=== PATIENT | male | born 1940 | race Caucasian/White ===

== ENCOUNTER 2019-05-31 22:35 | Emergency (ER) | payer MEDICARE, OTHER ==
[2019-05-31] MEDS ORDERED: Doxycycline 100 MG Tab PO ONE (22:36)
[2019-05-31] MEDS ORDERED: Cephalexin 500 MG Cap PO ONE (22:36)
[2019-05-31 23:32] VITALS: BP 135/79; PULSE 65
--- NOTE | 2019-05-31 23:44 | EDM.PDOC ---
ED HPI GENERAL MEDICAL PROBLEM - General Chief Complaint: Skin Complaint Stated Complaint: INFECTION Time Seen by Provider: 05/31/19 23:39 Source of Information: Reports: Patient History Limitations: Reports: No Limitations - History of Present Illness INITIAL COMMENTS - FREE TEXT/NARRATIVE: Brian is a 78 yo male presents with redness and pain in the pectoral region, where he had a pacemaker placed 3 days ago. No drainage.Denies any systemic symptoms of chest pain, fever or chills. He has chronic kidney disease, HTN,CAD , hyperlipidemia, afib,and GERD it is well-controlled. 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: Acetaminophen chest left post op Pain Score (Numeric/FACES): 5 - Related Data Allergies Allergy/AdvReac Type Severity Reaction Status Date / Time No Known Allergies Allergy Verified 05/31/19 23:27 Home Meds: Home Meds Ascorbate Calcium [Vitamin C] 1,000 mg PO DAILY@209909/23/15 [History] Aspirin 81 mg PO DAILY@209909/23/15 [History] Citalopram Hydrobromide [Citalopram HBr] 10 mg PO DAILY@209909/23/15 [History] Cyanocobalamin (Vitamin B-12) [B-12] 1,000 mcg PO DAILY@1200 09/23/15 [History] Doxazosin [Cardura] 4 mg PO DAILY@1800 09/23/15 [History] Gluc 2KCl/Chondr/Astrid Hy/Hy Ac [Glucosamine & Chondroitin Cap] 1 tab PO BID 02/02 [History] Metoprolol Tartrate 12.5 mg PO DAILY 09/23/15 [History] Multivitamin [Multivitamins] 1 tab PO DAILY@1200 09/23/15 [History] [place]-3 Fatty Acids [Fish Oil] 1,000 mg PO DAILY 09/23/15 [History] Acetaminophen/HYDROcodone [[place] 325-5 MG] 1 tab PO Q4H PRN #30 tab 09/24/15 [Rx ] Finasteride 5 mg PO DAILY@1200 09/22/18 [History] Pravastatin Sodium 10 mg PO DAILY 09/22/18 [History] Past Medical History HEENT History: Reports: Impaired Vision Cardiovascular History: Reports: Angina, High Cholesterol, Hypertension, [place] Other Cardiovascular History: ATHERSCLEROSIS OF [place] CORONARY ARTERY Gastrointestinal History: Reports: GERD, GI Bleed Other Gastrointestinal History: DIVERTICULOSIS Genitourinary History: Reports: Prostate Disorder Musculoskeletal History: Reports: Arthritis, Back Pain, Chronic, Fracture Neurological History: Reports: CVA, Headaches, Chronic Psychiatric History: Reports: Depression Endocrine/Metabolic History: Reports: Other (See Below) Other Endocrine/Metabolic History: pre-diabetics - Past Surgical History HEENT Surgical History: Reports: Oral Surgery, Tonsillectomy Cardiovascular Surgical History: Reports: Other (See Below) Other Cardiovascular Surgeries/Procedures: Pacemaker placed tuesday05/29/2019 Male Surgical History: Reports: Circumcision Neurological Surgical History: Reports: None Musculoskeletal Surgical History: Reports: None Social & Family History - Family History Family Medical History: Unobtainable - Caffeine Use Caffeine Use: Reports: Coffee ED ROS GENERAL - Review of Systems Review Of Systems: ROS reveals no pertinent complaints other than HPI. ED EXAM, SKIN/RASH Exam: See Below Exam Limited By: Uncooperative General Appearance: WD/WN Head: Atraumatic Neck: Normal Inspection Respiratory/Chest: No Respiratory Distress, Lungs Clear, Other (Left pectoral region overlying the pacemaker is red,warm,slightly tender.Redness extends to neck and chest wall,but no drainage) Cardiovascular: Normal Peripheral Pulses, No Edema, No JVD Course - Vital Signs Last Recorded V/S: Last Vital Signs Temp 97.7 F 05/31/19 22:40 Pulse 65 05/31/19 22:40 Resp 18 05/31/19 22:40 BP 135/79 05/31/19 22:40 Pulse Ox 97 05/31/19 22:40 - Orders/Labs/Meds Orders: Active Orders 24 hr Category Date Time Status CXR [Chest 2V] [CR] Stat Exams 05/31/19 23:22 Taken CULTURE BLOOD [BC] Urgent Lab 05/31/19 23:12 Received CULTURE BLOOD [BC] Urgent Lab 05/31/19 23:18 Received Blood Culture x2 Reflex Set [OM.PC] Urgent Oth 05/31/19 23:01 Ordered Labs: Laboratory Tests 05/31/19 05/31/19 05/31/19 Range/Units 23:12 23:12 23:12 WBC 8.0 (4.5-12.0) X10-3/uL RBC 3.87 L (4.30-5.75) x10(6)uL Hgb 12.5 L (13.5-17.8) g/dL Hct 36.7 (30.0-51.3) % MCV 95.0 (80-96) fL MCH 32.3 (27.7-33.6) pg MCHC 34.0 (32.2-35.4) g/dL RDW 13.9 (11.5-15.5) % Plt Count 176 (125-369) X10(3)uL MPV 8.1 (7.4-10.4) fL Neut % (Auto) 67.1 (46-82) % Lymph % (Auto) 17.9 (13-37) % [place] % (Auto) 13.3 H (4-12) % Eos % (Auto) 2 (1.0-5.0) % Baso % (Auto) 0 (0-2) % Neut # (Auto) 5.4 (1.6-8.3) # Lymph # (Auto) 1.4 (0.6-5.0) # [place] # (Auto) 1.1 (0.0-1.3) # Eos # (Auto) 0.1 (0.0-0.8) # Baso # (Auto) 0.0 (0.0-0.2) # Sodium 137 (135-145) mmol/L Potassium 4.7 (3.5-5.3) mmol/L Chloride 101 D (100-110) mmol/L Carbon Dioxide 26 (21-32) mmol/L BUN 32 H D (7-18) mg/dL Creatinine 1.9 H (0.70-1.30) mg/dL Est Cr Clr Drug Dosing TNP Estimated GFR (MDRD) 35 L (>60) BUN/Creatinine Ratio 16.8 (9-20) Glucose 115 (80-116) mg/dL Lactic Acid (0.4-2.2) mmol/L Calcium 8.8 (8.6-10.2) mg/dL Total Bilirubin 0.4 (0.1-1.3) mg/dL AST 24 (5-25) IU/L ALT 30 (12-36) U/L Alkaline Phosphatase 92 (56-112) IU/L C-Reactive Protein 6.1 H* (0.5-0.9) mg/dL Total Protein 7.5 (6.0-8.0) g/dL Albumin 3.5 (3.2-4.6) g/dL Globulin 4.0 g/dL Albumin/Globulin Ratio 0.9 05/31/19 Range/Units 23:18 WBC (4.5-12.0) X10-3/uL RBC (4.30-5.75) x10(6)uL Hgb (13.5-17.8) g/dL Hct (30.0-51.3) % MCV (80-96) fL MCH (27.7-33.6) pg MCHC (32.2-35.4) g/dL RDW (11.5-15.5) % Plt Count (125-369) X10(3)uL MPV (7.4-10.4) fL Neut % (Auto) (46-82) % Lymph % (Auto) (13-37) % [place] % (Auto) (4-12) % Eos % (Auto) (1.0-5.0) % Baso % (Auto) (0-2) % Neut # (Auto) (1.6-8.3) # Lymph # (Auto) (0.6-5.0) # [place] # (Auto) (0.0-1.3) # Eos # (Auto) (0.0-0.8) # Baso # (Auto) (0.0-0.2) # Sodium (135-145) mmol/L Potassium (3.5-5.3) mmol/L Chloride (100-110) mmol/L Carbon Dioxide (21-32) mmol/L BUN (7-18) mg/dL Creatinine (0.70-1.30) mg/dL Est Cr Clr Drug Dosing Estimated GFR (MDRD) (>60) BUN/Creatinine Ratio (9-20) Glucose (80-116) mg/dL Lactic Acid 0.6 (0.4-2.2) mmol/L Calcium (8.6-10.2) mg/dL Total Bilirubin (0.1-1.3) mg/dL AST (5-25) IU/L ALT (12-36) U/L Alkaline Phosphatase (56-112) IU/L C-Reactive Protein (0.5-0.9) mg/dL Total Protein (6.0-8.0) g/dL Albumin (3.2-4.6) g/dL Globulin g/dL Albumin/Globulin Ratio Departure - Departure Time of Disposition: 23:50 Disposition: Home, Self-Care 01 Condition: Good Clinical Impression: Cellulitis - Discharge Information Referrals: Naresh Howard MD [Primary Care Provider] - Forms: ED Department Discharge - Problem List & Annotations (1) Pacemaker infection SNOMED Code(s): 096811380 Code(s): T82.7XXA - INFECT/INFLM REACT D/T OTH CARDI/VASC DEV/IMPLNT/GRFT, INIT Status: Acute Current Visit: Yes Qualifiers: Encounter type: initial encounter Qualified Code(s): T82.7XXA - Infection and inflammatory reaction due to other cardiac and vascular devices, implants and grafts, initial encounter - Problem List Review Problem List Initiated/Reviewed/Updated: Yes - My Orders Last 24 Hours: My Active Orders 05/31/19 23:01 Blood Culture x2 Reflex Set [OM.PC] Urgent 05/31/19 23:12 CULTURE BLOOD [BC] Urgent 05/31/19 23:18 CULTURE BLOOD [BC] Urgent 05/31/19 23:22 CXR [Chest 2V] [CR] Stat - Assessment/Plan Last 24 Hours: My Active Orders 05/31/19 23:01 Blood Culture x2 Reflex Set [OM.PC] Urgent 05/31/19 23:12 CULTURE BLOOD [BC] Urgent 05/31/19 23:18 CULTURE BLOOD [BC] Urgent 05/31/19 23:22 CXR [Chest 2V] [CR] Stat Plan: Doug has no WBC elevation and no systemic symptoms. CXR was negative. His crp is elevated. I suggest oral antibiotics and close followup.Cephalexin and Doxy was chosen.See PCP on Tuesday.Return with any worsening symptoms,or systemic symptoms of fever,fatigue chiils
--- NOTE | 2019-06-01 11:44 | CR ---
INDICATION: Pacemaker infection. CHEST: Two PA views and two lateral views of the chest were obtained 05/31/19 and compared with 04/19/19 and 10/29/09. There has been interval placement of a pacemaker from the left subclavian area with tips appearing to be in satisfactory position with this bipolar pacemaker. Somewhat flattened diaphragm leaves, mildly prominent AP diameter, and hyperaeration all suggest COPD. Bony structures appear to be intact. The aorta is tortuous with calcification in the arch. The heart did not appear to be grossly enlarged but was near the upper limits of normal in size. A definite active infiltrate or effusion was not identified. IMPRESSION: No acute process - findings as noted above. MTDD
== END 2019-06-01 | disposition home or self-care (01) ==
LOC: FB.ED 22:35
DX: L03.313 Cellulitis of chest wall (principal); E78.00 Pure hypercholesterolemia, unspecified; I10 Essential (primary) hypertension; I25.2 Old myocardial infarction; K21.9 Gastro-esophageal reflux disease without esophagitis; F32.9 Major depressive disorder, single episode, unspecified; Z95.0 Presence of cardiac pacemaker; Z79.82 Long term (current) use of aspirin; Z79.899 Other long term (current) drug therapy; Z86.73 Personal history of transient ischemic attack (TIA), and cerebral infarction without residual deficits
CPT/HCPCS: 36415; 71046; 80053; 83605; 85025; 86140; 87040; 99283; A9270

== ENCOUNTER 2020-02-20 06:42 | Day surgery (SDC) | payer MEDICARE, OTHER ==
[2020-02-20] MEDS ORDERED: Lidocaine 1% PF 2 ML SDV INJECT ONE (06:43)
[2020-02-20] MEDS ORDERED: Propofol 200 MG/20 ML SDV IV ONE (06:43)
[2020-02-20] MEDS ORDERED: Lactated Ringers 1,000 ML IV SCH (06:45)
[2020-02-20] MEDS ORDERED: Sodium Chloride 0.9% 10 ML Syringe FLUSH PRN (06:45)
--- NOTE | 2020-02-20 09:44 | PCM.OPNOTE ---
- General Post-Op/Procedure Note Date of Surgery/Procedure: 02/20/20 Operative Procedure(s): c scope with bx Findings: ascending colon polyp diverticulosis internal hemorrhoids. Pre Op Diagnosis: bleeding per rectum Post-Op Diagnosis: ascending colon polyp. diverticulosis. internal hemorrhoids. Anesthesia Technique: MAC Primary Surgeon: Roger Brooks Anesthesia Provider: Roly Russ Pathology: colon polyp Complications: None Condition: Good Free Text/Narrative:: see dictation
--- NOTE | 2020-02-20 10:06 | OR ---
DATE OF OPERATION: 02/20/2020 SURGEON: Roger Brooks MD PREOPERATIVE DIAGNOSIS: Rectal bleeding. POSTOPERATIVE DIAGNOSES: Ascending colon polyp, diverticulosis of the descending and sigmoid colon, and what appears to be grade 2 internal hemorrhoids. INDICATIONS FOR PROCEDURE: This is a 79-year-old white male, referred with the above-mentioned complaints. He was offered and accepted colonoscopy. DESCRIPTION OF OPERATION: After an excellent IV sedation was administered, digital rectal exam was performed. No marked abnormality was noted. Flexible colonoscope was inserted and advanced to cecum. Prep was excellent. The following findings were noted. Ascending colon remarkable for a small 5 mm polyp, biopsied with the hot loop snare and retrieved with the Delcid Net. Transverse colon, unremarkable. Descending colon, occasional diverticula. Sigmoid, occasional diverticula. Rectum, unremarkable. Anus, grade 2 hemorrhoids, which appears to be the cause of his bleeding. Results will be sent to the patient by letter. Recommend high-fiber diet at this point. /[id number] /MODL
[2020-02-20 12:37] VITALS: BP 155/75; PULSE 62
== END 2020-02-20 10:30 | disposition home or self-care (01) ==
LOC: FB.SDS 06:42
PROVIDERS: ATTEND Surgery
DX: D12.2 Benign neoplasm of ascending colon (principal); K64.1 Second degree hemorrhoids; K57.30 Diverticulosis of large intestine without perforation or abscess without bleeding; E78.2 Mixed hyperlipidemia; F41.9 Anxiety disorder, unspecified; I10 Essential (primary) hypertension; N40.0 Benign prostatic hyperplasia without lower urinary tract symptoms; E66.9 Obesity, unspecified; Z79.82 Long term (current) use of aspirin; Z79.899 Other long term (current) drug therapy; Z88.8 Allergy status to other drugs, medicaments and biological substances; Z68.30 Body mass index [BMI] 30.0-30.9, adult
CPT/HCPCS: 00811; 45385; 88305; J2001; J2704; J7120

== ENCOUNTER 2020-02-28 07:59 | Emergency (ER) | payer MEDICARE, OTHER ==
--- NOTE | 2020-02-28 08:43 | EDM.PDOC ---
ED HPI GENERAL MEDICAL PROBLEM - General Chief Complaint: Gastrointestinal Problem Stated Complaint: RECTUM BLEEDING Time Seen by Provider: 02/28/20 08:00 Source of Information: Reports: Patient History Limitations: Reports: No Limitations - History of Present Illness INITIAL COMMENTS - FREE TEXT/NARRATIVE: Patient presented to the Ed because of bright red and dark stool that is mixed with stool. He denies having any abdominal pain. There is no N/V/. He has a colonoscopy done 1 week ago with removal of a small polyp and biopsy. Rectal Pain Score (Numeric/FACES): 2 - Related Data Allergies Allergy/AdvReac Type Severity Reaction Status Date / Time Beta-Adrenergic Agents Allergy Other Verified 02/28/20 08:10 lisinopril Allergy Cough Verified 02/28/20 08:10 Home Meds: Home Meds Ascorbate Calcium [Vitamin C] 1,000 mg PO DAILY@209909/23/15 [History] Aspirin 81 mg PO DAILY@209909/23/15 [History] Citalopram Hydrobromide [Citalopram HBr] 10 mg PO DAILY@209909/23/15 [History] Cyanocobalamin (Vitamin B-12) [B-12] 1,000 mcg PO DAILY@1200 09/23/15 [History] Doxazosin [Cardura] 4 mg PO DAILY@1800 09/23/15 [History] Multivitamin [Multivitamins] 1 tab PO DAILY@1200 09/23/15 [History] [place]-3 Fatty Acids [Fish Oil] 1,000 mg PO DAILY 09/23/15 [History] Finasteride 5 mg PO DAILY@1200 09/22/18 [History] Pravastatin Sodium 10 mg PO DAILY 09/22/18 [History] Amiodarone [Cordarone] 200 mg PO DAILY 02/20/20 [History] Ferrous Sulfate 325 mg PO DAILY 02/20/20 [History] Gabapentin [Neurontin] 300 mg PO BID 02/20/20 [History] Magnesium Oxide [Magnesium] 500 mg PO DAILY 02/20/20 [History] Rivaroxaban [Xarelto] 20 mg PO DAILY 02/20/20 [History] Sertraline [Zoloft] 100 mg PO DAILY 02/20/20 [History] Past Medical History HEENT History: Reports: Impaired Vision Cardiovascular History: Reports: Angina, High Cholesterol, Hypertension, [place] Other Cardiovascular History: ATHERSCLEROSIS OF [place] CORONARY ARTERY Respiratory History: Reports: Sleep Apnea Gastrointestinal History: Reports: Diverticulosis, GERD, GI Bleed, Hemorrhoids Other Gastrointestinal History: DIVERTICULOSIS Genitourinary History: Reports: Prostate Disorder Musculoskeletal History: Reports: Arthritis, Back Pain, Chronic, Fracture Neurological History: Reports: CVA, Headaches, Chronic Psychiatric History: Reports: Anxiety, Depression Endocrine/Metabolic History: Reports: Other (See Below) Other Endocrine/Metabolic History: pre-diabetics. OBESITY Hematologic History: Reports: Anticoagulation Therapy Immunologic History: Reports: None Oncologic (Cancer) History: Reports: None Dermatologic History: Reports: None - Past Surgical History Head Surgeries/Procedures: Reports: None HEENT Surgical History: Reports: Oral Surgery, Tonsillectomy Cardiovascular Surgical History: Reports: Other (See Below) Other Cardiovascular Surgeries/Procedures: Pacemaker placed tuesday05/29/2019 GI Surgical History: Reports: Colonoscopy, EGD, Hernia, Abdominal, Hernia, Inguinal, Polypectomy Male Surgical History: Reports: Circumcision Neurological Surgical History: Reports: None Musculoskeletal Surgical History: Reports: None Social & Family History - Family History Family Medical History: Unobtainable - Tobacco Use Smoking Status *Q: Former Smoker Used Tobacco, but Quit: Yes Month/Year Tobacco Last Used: 6 years ago - Caffeine Use Caffeine Use: Reports: Coffee - Recreational Drug Use Recreational Drug Use: No ED ROS GENERAL - Review of Systems Review Of Systems: See Below Constitutional: Reports: No Symptoms HEENT: Reports: No Symptoms Respiratory: Reports: No Symptoms Cardiovascular: Reports: No Symptoms Endocrine: Reports: No Symptoms GI/Abdominal: Reports: No Symptoms, Black Stool, Hematochezia, Melena : Reports: No Symptoms Musculoskeletal: Reports: No Symptoms Skin: Reports: No Symptoms ED EXAM, GI/ABD - Physical Exam Exam: See Below Exam Limited By: No Limitations General Appearance: Alert, No Apparent Distress Ears: Normal External Exam, Normal Canal, Hearing Grossly Normal Nose: Normal Inspection, Normal Mucosa Throat/Mouth: Normal Inspection, Normal Lips, Normal Teeth Head: Atraumatic, Normocephalic Neck: Normal Inspection, Limited Range of Motion Cardiovascular: Normal Peripheral Pulses, Regular Rate, Rhythm, No Edema GI/Abdominal Exam: Normal Bowel Sounds, Soft, Non-Tender, No Organomegaly Course - Vital Signs Text/Narrative:: Cbc-see result Hb-11.8 occult blood -pos Case discussed with Dr. Brooks who agreed for patient to not take his xeralto and aspirin for 4 days and resume on Tuesday. Last Recorded V/S: Last Vital Signs Temp 36.4 C 02/28/20 08:00 Pulse 65 02/28/20 08:00 Resp 18 02/28/20 08:00 BP 123/70 02/28/20 08:00 Pulse Ox 97 02/28/20 08:00 - Orders/Labs/Meds Orders: Active Orders 24 hr Category Date Time Status OCCULT BLOOD SCREEN [OP] Stat Lab 02/28/20 08:35 Ordered Labs: Laboratory Tests 02/28/20 Range/Units 08:15 WBC 5.2 (4.5-12.0) X10-3/uL RBC 3.61 L (4.30-5.75) x10(6)uL Hgb 11.8 L (13.5-17.8) g/dL Hct 34.7 (30.0-51.3) % MCV 95.9 (80-96) fL MCH 32.8 (27.7-33.6) pg MCHC 34.2 (32.2-35.4) g/dL RDW 13.4 (11.5-15.5) % Plt Count 219 (125-369) X10(3)uL MPV 7.1 L (7.4-10.4) fL Neut % (Auto) 61.5 (46-82) % Lymph % (Auto) 23.1 (13-37) % [place] % (Auto) 11.6 (4-12) % Eos % (Auto) 3 (1.0-5.0) % Baso % (Auto) 1 (0-2) % Neut # (Auto) 3.2 (1.6-8.3) # Lymph # (Auto) 1.2 (0.6-5.0) # [place] # (Auto) 0.6 (0.0-1.3) # Eos # (Auto) 0.2 (0.0-0.8) # Baso # (Auto) 0.0 (0.0-0.2) # Departure - Departure Time of Disposition: 08:45 Disposition: Home, Self-Care 01 Condition: Good Clinical Impression: Lower GI bleed - Discharge Information Instructions: Lower Gastrointestinal Bleeding Referrals: Naresh Howard MD [Primary Care Provider] - Additional Instructions: Please read discharge instructions on Lower GI bleed Do not take your aspirin and xeralto for 4 days- to Tuesday and start taking it again on Tuesday The bleeding will not totally stop but gradually Sepsis Event Note - Evaluation Sepsis Screening Result: No Definite Risk - Focused Exam Vital Signs: Vital Signs Temp Pulse Resp BP Pulse Ox 02/28/20 08:00 36.4 C 65 18 123/70 97 Date Exam was Performed: 02/28/20 Time Exam was Performed: 08:37 - My Orders Last 24 Hours: My Active Orders 02/28/20 08:35 OCCULT BLOOD SCREEN [OP] Stat - Assessment/Plan Last 24 Hours: My Active Orders 02/28/20 08:35 OCCULT BLOOD SCREEN [OP] Stat
[2020-02-28 09:00] VITALS: BP 115/67; PULSE 61
== END 2020-02-28 09:00 | disposition home or self-care (01) ==
LOC: FB.ED 07:59
DX: K92.2 Gastrointestinal hemorrhage, unspecified (principal); E78.00 Pure hypercholesterolemia, unspecified; I10 Essential (primary) hypertension; I25.2 Old myocardial infarction; K21.9 Gastro-esophageal reflux disease without esophagitis; F41.9 Anxiety disorder, unspecified; F32.9 Major depressive disorder, single episode, unspecified; M19.90 Unspecified osteoarthritis, unspecified site; Z86.73 Personal history of transient ischemic attack (TIA), and cerebral infarction without residual deficits; Z88.8 Allergy status to other drugs, medicaments and biological substances; Z87.891 Personal history of nicotine dependence; Z79.899 Other long term (current) drug therapy
CPT/HCPCS: 36415; 82270; 85025; 99283

== ENCOUNTER 2020-02-28 20:20 | Emergency (ER) | payer MEDICARE, OTHER ==
--- NOTE | 2020-02-28 21:21 | EDM.PDOC ---
ED HPI GENERAL MEDICAL PROBLEM - General Chief Complaint: Abdominal Pain Stated Complaint: BLOOD IN STOOL Time Seen by Provider: 02/28/20 20:25 Source of Information: Reports: Patient History Limitations: Reports: No Limitations - History of Present Illness INITIAL COMMENTS - FREE TEXT/NARRATIVE: Patient presented to the ED because of dark looking stools. He was seen earlier this morning with HB of 11.8. He was told to hold on his xeralto and aspirin for [address] Brooks was consulted who agreed with the above plan of care. Bilateral Lower Abdomen Pain Score (Numeric/FACES): 4 - Related Data Allergies Allergy/AdvReac Type Severity Reaction Status Date / Time Beta-Adrenergic Agents Allergy Other Verified 02/28/20 20:30 lisinopril Allergy Cough Verified 02/28/20 20:30 Home Meds: Home Meds Ascorbate Calcium [Vitamin C] 1,000 mg PO DAILY@2100 09/23/15 [History] Aspirin 81 mg PO DAILY@2100 09/23/15 [History] Citalopram Hydrobromide [Citalopram HBr] 10 mg PO DAILY@2100 09/23/15 [History] Cyanocobalamin (Vitamin B-12) [B-12] 1,000 mcg PO DAILY@1200 09/23/15 [History] Doxazosin [Cardura] 4 mg PO DAILY@1800 09/23/15 [History] Multivitamin [Multivitamins] 1 tab PO DAILY@1200 09/23/15 [History] [place]-3 Fatty Acids [Fish Oil] 1,000 mg PO DAILY 09/23/15 [History] Finasteride 5 mg PO DAILY@1200 09/22/18 [History] Pravastatin Sodium 10 mg PO DAILY 09/22/18 [History] Amiodarone [Cordarone] 200 mg PO DAILY 02/20/20 [History] Ferrous Sulfate 325 mg PO DAILY 02/20/20 [History] Gabapentin [Neurontin] 300 mg PO BID 02/20/20 [History] Magnesium Oxide [Magnesium] 500 mg PO DAILY 02/20/20 [History] Rivaroxaban [Xarelto] 20 mg PO DAILY 02/20/20 [History] Sertraline [Zoloft] 100 mg PO DAILY 02/20/20 [History] Past Medical History HEENT History: Reports: Impaired Vision Cardiovascular History: Reports: Angina, High Cholesterol, Hypertension, [place] Other Cardiovascular History: ATHERSCLEROSIS OF [place] CORONARY ARTERY Respiratory History: Reports: Sleep Apnea Gastrointestinal History: Reports: Diverticulosis, GERD, GI Bleed, Hemorrhoids Other Gastrointestinal History: DIVERTICULOSIS Genitourinary History: Reports: Prostate Disorder Musculoskeletal History: Reports: Arthritis, Back Pain, Chronic, Fracture Neurological History: Reports: CVA, Headaches, Chronic Psychiatric History: Reports: Anxiety, Depression Endocrine/Metabolic History: Reports: Other (See Below) Other Endocrine/Metabolic History: pre-diabetics. OBESITY Hematologic History: Reports: Anticoagulation Therapy Immunologic History: Reports: None Oncologic (Cancer) History: Reports: None Dermatologic History: Reports: None - Past Surgical History Head Surgeries/Procedures: Reports: None HEENT Surgical History: Reports: Oral Surgery, Tonsillectomy Cardiovascular Surgical History: Reports: Other (See Below) Other Cardiovascular Surgeries/Procedures: Pacemaker placed tuesday05/29/2019 GI Surgical History: Reports: Colonoscopy, EGD, Hernia, Abdominal, Hernia, Inguinal, Polypectomy Male Surgical History: Reports: Circumcision Neurological Surgical History: Reports: None Musculoskeletal Surgical History: Reports: None Social & Family History - Family History Family Medical History: Unobtainable - Caffeine Use Caffeine Use: Reports: Coffee ED ROS GENERAL - Review of Systems Review Of Systems: See Below Constitutional: Reports: No Symptoms HEENT: Reports: No Symptoms Respiratory: Reports: No Symptoms Cardiovascular: Reports: No Symptoms Endocrine: Reports: No Symptoms GI/Abdominal: Reports: No Symptoms : Reports: No Symptoms Musculoskeletal: Reports: No Symptoms Skin: Reports: No Symptoms Neurological: Reports: No Symptoms Psychiatric: Reports: No Symptoms Hematologic/Lymphatic: Reports: No Symptoms ED EXAM, GI/ABD - Physical Exam Exam: See Below Exam Limited By: No Limitations General Appearance: Alert, No Apparent Distress Ears: Normal External Exam Nose: Normal Inspection Throat/Mouth: Normal Inspection Head: Atraumatic Neck: Normal Inspection Respiratory/Chest: No Respiratory Distress Cardiovascular: Normal Peripheral Pulses GI/Abdominal Exam: Normal Bowel Sounds Back Exam: Normal Inspection Course - Vital Signs Text/Narrative:: Hb=11 Last Recorded V/S: Last Vital Signs Temp 36.8 C 02/28/20 20:20 Pulse 61 02/28/20 20:20 Resp 16 02/28/20 20:20 BP 128/61 02/28/20 20:20 Pulse Ox 99 02/28/20 20:20 - Orders/Labs/Meds Labs: Laboratory Tests 02/28/20 Range/Units 20:40 Hgb 11.1 L (13.5-17.8) g/dL Departure - Departure Time of Disposition: 21:20 Disposition: Home, Self-Care 01 Condition: Good Clinical Impression: Bloody stools, Lower GI bleed - Discharge Information Instructions: Lower Gastrointestinal Bleeding Referrals: Naresh Howard MD [Primary Care Provider] - Forms: ED Department Discharge Additional Instructions: please read discharge instructions on bloody stools do not take your xeralto and aspirin until Tuesday, resume on Tuesday return to the ED if your bloody stools don't stop Sepsis Event Note - Focused Exam Date Exam was Performed: 02/29/20 Time Exam was Performed: 11:43
[2020-02-28 22:04] VITALS: BP 128/61; PULSE 61
== END 2020-02-28 21:42 | disposition home or self-care (01) ==
LOC: FB.ED 20:20
DX: K92.1 Melena (principal); E78.00 Pure hypercholesterolemia, unspecified; I10 Essential (primary) hypertension; I25.2 Old myocardial infarction; K21.9 Gastro-esophageal reflux disease without esophagitis; M19.90 Unspecified osteoarthritis, unspecified site; Z86.73 Personal history of transient ischemic attack (TIA), and cerebral infarction without residual deficits; E66.9 Obesity, unspecified; Z88.8 Allergy status to other drugs, medicaments and biological substances; Z79.899 Other long term (current) drug therapy; F41.9 Anxiety disorder, unspecified; F32.9 Major depressive disorder, single episode, unspecified
CPT/HCPCS: 36415; 85018; 99284

== ENCOUNTER 2023-04-08 03:24 | Emergency (ER) | payer MEDICARE, OTHER ==
[2023-04-08 04:00] LABS: BASOPHILS PERCENT AUTO 0.5 % (0.3-3.8); EOSINOPHILS ABSOLUTE AUTO 0.1 x10-3/uL (0.0-0.6); EOSINOPHILS PERCENT AUTO 2.4 % (0.1-6.8); HEMATOCRIT 40.3 % (38.3-50.1); HEMOGLOBIN 13.3 g/dL (12.9-17.7); LYMPHOCYTES ABSOLUTE AUTO 1.1 x10-3/uL (0.5-4.5); LYMPHOCYTES PERCENT AUTO 22.5 % (15.8-45.3); MEAN CORPUSCULAR HEMOGLOBIN 31.7 pg (27.0-33.3); MEAN CORPUSCULAR HGB CONC 33.1 g/dL (28.7-35.3); MEAN CORPUSCULAR VOLUME 95.8 fL (80.8-98.7); MEAN PLATELET VOLUME 8.4 fL (6.7-11.0); MONOCYTES ABSOLUTE AUTO 0.7 x10-3/uL (0.0-1.2); MONOCYTES PERCENT AUTO 14.6 % (5.5-15.2); NEUTROPHILS ABSOLUTE AUTO 2.9 x10-3/uL (1.7-6.9); PLATELET COUNT,PLT 158 x10(3)uL (117-477); RED BLOOD CELL COUNT 4.21 x10(6)uL (3.90-5.90); RED CELL DISTRIBUTION WIDTH 13.2 % (12.4-15.0); WHITE BLOOD CELL COUNT,WBC 4.8 x10-3/uL (3.2-10.1)
[2023-04-08 04:02] VITALS: BP 167/99; PULSE 69
[2023-04-08 04:08] LABS: INR 1.02 (1.00-1.24); PROTHROMBIN TIME 10.5 sec (9.0-11.1)
[2023-04-08 04:11] LABS: BLOOD UREA NITROGEN,BUN 20 mg/dL (7-18); BUN/CREATININE RATIO 15.4 (9-20); CALCIUM 8.9 mg/dL (8.6-10.2); CARBON DIOXIDE,CO2 28 mmol/L (21-32); CHLORIDE,CL 97 mmol/L (100-110); CREATININE 1.3 mg/dL (0.70-1.30); EST CRCL DRUG DOSING (CG) 51.81 mL/min; ESTIMATED GFR 55 mL/min (>60); GLUCOSE RANDOM 108 mg/dL (80-116); POTASSIUM,K 4.6 mmol/L (3.5-5.3); SODIUM,NA 131 mmol/L (135-145)
[2023-04-08 04:17] LABS: A/G RATIO 1.1; ALANINE AMINOTRANSFERASE,ALT 14 U/L (12-36); ALBUMIN 3.5 g/dL (3.2-4.6); ALKALINE PHOSPHATASE 76 IU/L (56-112); ASPARTATE AMNIOTRANSFERASE,AST 23 IU/L (5-25); BILIRUBIN TOTAL 0.4 mg/dL (0.1-1.3); PROTEIN TOTAL,TP 6.8 g/dL (6.0-8.0)
[2023-04-08 04:18] LABS: TROPONIN I 32.3 pg/mL (4.0-60.3)
[2023-04-08] MEDS ORDERED: Alum Hydroxide/Mag Hydroxide 15 ML, Lidocaine 2% 15 ML PO ONE ×2 (04:45)
[2023-04-08] MEDS ORDERED: Aluminum Hydroxide/Magnesium Hydroxide Susp 30 ML Cup ONE (04:51)
[2023-04-08] MEDS ORDERED: Aluminum Hydroxide/Magnesium Hydroxide Susp 30 ML Cup PO STA (05:16)
== END 2023-04-08 05:27 | disposition home or self-care (01) ==
LOC: FB.ED 03:24
DX: R07.9 Chest pain, unspecified (principal); E87.1 Hypo-osmolality and hyponatremia; I48.91 Unspecified atrial fibrillation; I10 Essential (primary) hypertension; I25.2 Old myocardial infarction; I25.10 Atherosclerotic heart disease of native coronary artery without angina pectoris; E78.00 Pure hypercholesterolemia, unspecified; K21.9 Gastro-esophageal reflux disease without esophagitis; M19.90 Unspecified osteoarthritis, unspecified site; Z87.891 Personal history of nicotine dependence; Z88.8 Allergy status to other drugs, medicaments and biological substances; Z79.82 Long term (current) use of aspirin; Z79.899 Other long term (current) drug therapy; Z79.01 Long term (current) use of anticoagulants; Z95.5 Presence of coronary angioplasty implant and graft; Z95.0 Presence of cardiac pacemaker
CPT/HCPCS: 36415; 80053; 83880; 84484; 85025; 85610; 99284; A9270

== ENCOUNTER 2023-05-26 10:13 | Inpatient (IN) | payer MEDICARE, OTHER ==
[2023-05-26] MEDS ORDERED: Albuterol 8 GM Inhaler INH PRN (14:17)
[2023-05-26] MEDS ORDERED: Nitroglycerin 0.4 MG Tab.SL SL PRN (14:56)
[2023-05-26] MEDS: Finasteride 5 MG Tab PO SCH (15:46)
[2023-05-26] MEDS: metroNIDAZOLE 500 MG Tab PO SCH ×2 (15:46→21:52)
[2023-05-26] MEDS: Polyethylene Glycol 3350 Powder 17 GM Packet PO SCH (16:52)
[2023-05-26] MEDS: Pregabalin 100 MG Cap PO SCH ×2 (16:52→21:52)
[2023-05-26] MEDS: Psyllium 0.52 GM Cap PO SCH (16:53)
[2023-05-26] MEDS ORDERED: Hydrocortisone 2.5% Crm 30 GM Tube TOP PRN (21:00)
[2023-05-26] MEDS: Docusate Sodium 100 MG Cap PO SCH (21:52)
[2023-05-26] MEDS: Magnesium Oxide 400 MG Tab PO SCH (21:52)
[2023-05-26] MEDS: Acetaminophen 325 MG Tab PO PRN (21:52)
[2023-05-26] MEDS: Apixaban 2.5 MG Tab PO SCH (21:52)
[2023-05-26] MEDS: Ascorbic Acid 500 MG Tab PO SCH (21:53)
[2023-05-27] MEDS: Pantoprazole 40 MG Tab.CR PO SCH (05:18)
[2023-05-27] MEDS: Psyllium 0.52 GM Cap PO SCH (08:37)
[2023-05-27] MEDS: Cholecalciferol (Vitamin D3) 25 MCG Tab PO SCH (08:38)
[2023-05-27] MEDS: Furosemide 20 MG Tab PO SCH (08:38)
[2023-05-27] MEDS: Doxazosin 2 MG Tab PO SCH (08:39)
[2023-05-27] MEDS: Pravastatin 20 MG Tab PO SCH (08:41)
[2023-05-27] MEDS: Docusate Sodium 100 MG Cap PO SCH ×2 (08:41→21:44)
[2023-05-27] MEDS: Apixaban 2.5 MG Tab PO SCH ×2 (08:43→21:41)
[2023-05-27] MEDS: metroNIDAZOLE 500 MG Tab PO SCH ×3 (08:43→21:41)
[2023-05-27] MEDS: Fish Oil/Omega-3 Fatty Acids 1 Gm Cap PO SCH (08:43)
[2023-05-27] MEDS: Aspirin 81 MG Tab.EC PO SCH (08:44)
[2023-05-27] MEDS: Lidocaine 4% 1 each Patch TOP SCH (08:44)
[2023-05-27] MEDS: Polyethylene Glycol 3350 Powder 17 GM Packet PO SCH (08:49)
[2023-05-27] MEDS: Pregabalin 100 MG Cap PO SCH ×3 (08:50→21:46)
[2023-05-27] MEDS: Finasteride 5 MG Tab PO SCH (11:40)
[2023-05-27] MEDS: Cyanocobalamin (Vitamin B12) 1,000 MCG Tab PO SCH (11:40)
[2023-05-27] MEDS: Ascorbic Acid 500 MG Tab PO SCH (21:41)
[2023-05-27] MEDS: Magnesium Oxide 400 MG Tab PO SCH (21:41)
[2023-05-27] MEDS: Acetaminophen 325 MG Tab PO PRN (22:04)
[2023-05-28] MEDS: Pantoprazole 40 MG Tab.CR PO SCH (06:11)
[2023-05-28] MEDS: Lidocaine 4% 1 each Patch TOP SCH (08:34)
[2023-05-28] MEDS: Polyethylene Glycol 3350 Powder 17 GM Packet PO SCH (08:34)
[2023-05-28] MEDS: Docusate Sodium 100 MG Cap PO SCH ×2 (08:37→21:28)
[2023-05-28] MEDS: Psyllium 0.52 GM Cap PO SCH (08:37)
[2023-05-28] MEDS: Cholecalciferol (Vitamin D3) 25 MCG Tab PO SCH (08:37)
[2023-05-28] MEDS: Pravastatin 20 MG Tab PO SCH (08:37)
[2023-05-28] MEDS: metroNIDAZOLE 500 MG Tab PO SCH ×3 (08:37→21:28)
[2023-05-28] MEDS: Fish Oil/Omega-3 Fatty Acids 1 Gm Cap PO SCH (08:37)
[2023-05-28] MEDS: Apixaban 2.5 MG Tab PO SCH ×2 (08:37→21:28)
[2023-05-28] MEDS: Furosemide 20 MG Tab PO SCH (08:37)
[2023-05-28] MEDS: Doxazosin 2 MG Tab PO SCH (08:37)
[2023-05-28] MEDS: Aspirin 81 MG Tab.EC PO SCH (08:37)
[2023-05-28] MEDS: Pregabalin 100 MG Cap PO SCH ×3 (08:51→21:28)
[2023-05-28] MEDS: Cyanocobalamin (Vitamin B12) 1,000 MCG Tab PO SCH (14:07)
[2023-05-28] MEDS: Finasteride 5 MG Tab PO SCH (14:08)
[2023-05-28] MEDS: Ascorbic Acid 500 MG Tab PO SCH (21:29)
[2023-05-28] MEDS: Magnesium Oxide 400 MG Tab PO SCH (21:29)
[2023-05-28] MEDS: Acetaminophen 325 MG Tab PO PRN (21:29)
[2023-05-29] MEDS: Acetaminophen 325 MG Tab PO PRN (03:23)
[2023-05-29] MEDS ORDERED: Cyclobenzaprine 10 MG Tab PO ONE (04:24)
[2023-05-29] MEDS ORDERED: traMADol 50 MG Tab PO ONE (04:25)
[2023-05-29] MEDS: Pantoprazole 40 MG Tab.CR PO SCH (05:59)
[2023-05-29 06:05] VITALS: PULSE 69
[2023-05-29] MEDS: traMADol 50 MG Tab PO SCH ×2 (10:18→16:55)
[2023-05-29] MEDS: Cholecalciferol (Vitamin D3) 25 MCG Tab PO SCH (10:20)
[2023-05-29] MEDS: metroNIDAZOLE 500 MG Tab PO SCH ×3 (10:20→21:36)
[2023-05-29] MEDS: Aspirin 81 MG Tab.EC PO SCH (10:20)
[2023-05-29] MEDS: Furosemide 20 MG Tab PO SCH (10:20)
[2023-05-29] MEDS: Pravastatin 20 MG Tab PO SCH (10:20)
[2023-05-29] MEDS: Fish Oil/Omega-3 Fatty Acids 1 Gm Cap PO SCH (10:21)
[2023-05-29] MEDS: Apixaban 2.5 MG Tab PO SCH ×2 (10:21→21:36)
[2023-05-29] MEDS: Psyllium 0.52 GM Cap PO SCH (10:21)
[2023-05-29] MEDS: Docusate Sodium 100 MG Cap PO SCH ×2 (10:21→21:36)
[2023-05-29] MEDS: Pregabalin 100 MG Cap PO SCH ×3 (10:22→21:36)
[2023-05-29] MEDS: Doxazosin 2 MG Tab PO SCH (10:22)
[2023-05-29] MEDS: Polyethylene Glycol 3350 Powder 17 GM Packet PO SCH (10:24)
[2023-05-29] MEDS: Lidocaine 4% 1 each Patch TOP SCH (10:48)
[2023-05-29] MEDS: Cyanocobalamin (Vitamin B12) 1,000 MCG Tab PO SCH (12:20)
[2023-05-29] MEDS: Finasteride 5 MG Tab PO SCH (12:20)
[2023-05-29] MEDS: Acetaminophen 500 MG Tab PO SCH ×2 (13:19→21:37)
[2023-05-29] MEDS ORDERED: Pregabalin 25 MG Cap ONE (13:55)
[2023-05-29] MEDS ORDERED: Pregabalin 25 MG Cap PO ONE (14:00)
[2023-05-29] MEDS ORDERED: traMADol 50 MG Tab PO PRN (16:46)
[2023-05-29] MEDS ORDERED: Cyclobenzaprine 10 MG Tab PO PRN (16:46)
[2023-05-29] MEDS: Magnesium Oxide 400 MG Tab PO SCH (21:36)
[2023-05-29] MEDS: Ascorbic Acid 500 MG Tab PO SCH (21:37)
[2023-05-30] MEDS: Pantoprazole 40 MG Tab.CR PO SCH (05:32)
[2023-05-30] MEDS: Fish Oil/Omega-3 Fatty Acids 1 Gm Cap PO SCH (08:17)
[2023-05-30] MEDS: Aspirin 81 MG Tab.EC PO SCH (08:18)
[2023-05-30] MEDS: Doxazosin 2 MG Tab PO SCH (08:18)
[2023-05-30] MEDS: Apixaban 2.5 MG Tab PO SCH ×2 (08:19→21:38)
[2023-05-30] MEDS: Furosemide 20 MG Tab PO SCH (08:19)
[2023-05-30] MEDS: Pravastatin 20 MG Tab PO SCH (08:21)
[2023-05-30] MEDS: Psyllium 0.52 GM Cap PO SCH (08:21)
[2023-05-30] MEDS: Cholecalciferol (Vitamin D3) 25 MCG Tab PO SCH (08:22)
[2023-05-30] MEDS: metroNIDAZOLE 500 MG Tab PO SCH ×3 (08:23→21:38)
[2023-05-30] MEDS: Docusate Sodium 100 MG Cap PO SCH ×2 (08:24→21:38)
[2023-05-30] MEDS: Polyethylene Glycol 3350 Powder 17 GM Packet PO SCH (08:30)
[2023-05-30] MEDS: Acetaminophen 500 MG Tab PO SCH ×3 (08:43→21:39)
[2023-05-30] MEDS: Albuterol 90 MCG/6.7 GM Inhaler INH SCH ×4 (08:44→21:38)
[2023-05-30] MEDS: Lidocaine 4% 1 each Patch TOP SCH (08:56)
[2023-05-30] MEDS: Pregabalin 100 MG Cap PO SCH ×3 (08:56→21:38)
[2023-05-30] MEDS: Finasteride 5 MG Tab PO SCH (11:33)
[2023-05-30] MEDS: Cyanocobalamin (Vitamin B12) 1,000 MCG Tab PO SCH (11:33)
[2023-05-30] MEDS: Magnesium Oxide 400 MG Tab PO SCH (21:38)
[2023-05-30] MEDS: Ascorbic Acid 500 MG Tab PO SCH (21:40)
[2023-05-30] MEDS: CBD PO PRN (21:41)
[2023-05-31] MEDS: Pantoprazole 40 MG Tab.CR PO SCH (06:00)
[2023-05-31] MEDS: Furosemide 20 MG Tab PO SCH (08:01)
[2023-05-31] MEDS: Aspirin 81 MG Tab.EC PO SCH (08:01)
[2023-05-31] MEDS: Pregabalin 100 MG Cap PO SCH ×3 (08:01→21:45)
[2023-05-31] MEDS: metroNIDAZOLE 500 MG Tab PO SCH ×3 (08:01→21:45)
[2023-05-31] MEDS: Acetaminophen 500 MG Tab PO SCH ×3 (08:01→21:46)
[2023-05-31] MEDS: Apixaban 2.5 MG Tab PO SCH ×2 (08:01→21:45)
[2023-05-31] MEDS: Docusate Sodium 100 MG Cap PO SCH ×2 (08:02→21:44)
[2023-05-31] MEDS: Doxazosin 2 MG Tab PO SCH (08:02)
[2023-05-31] MEDS: Lidocaine 4% 1 each Patch TOP SCH (08:03)
[2023-05-31] MEDS: Psyllium 0.52 GM Cap PO SCH (08:03)
[2023-05-31] MEDS: Polyethylene Glycol 3350 Powder 17 GM Packet PO SCH (08:04)
[2023-05-31] MEDS: Fish Oil/Omega-3 Fatty Acids 1 Gm Cap PO SCH (08:04)
[2023-05-31] MEDS: Pravastatin 20 MG Tab PO SCH (08:04)
[2023-05-31] MEDS: Albuterol 90 MCG/6.7 GM Inhaler INH SCH ×4 (08:05→21:45)
[2023-05-31] MEDS: Cholecalciferol (Vitamin D3) 25 MCG Tab PO SCH (08:06)
[2023-05-31] MEDS: Finasteride 5 MG Tab PO SCH (12:26)
[2023-05-31] MEDS: Cyanocobalamin (Vitamin B12) 1,000 MCG Tab PO SCH (12:26)
[2023-05-31] MEDS: Magnesium Oxide 400 MG Tab PO SCH (21:45)
[2023-05-31] MEDS: Ascorbic Acid 500 MG Tab PO SCH (21:47)
[2023-05-31] MEDS: CBD PO PRN (21:48)
[2023-06-01] MEDS: Pantoprazole 40 MG Tab.CR PO SCH (06:22)
[2023-06-01] MEDS: Albuterol 90 MCG/6.7 GM Inhaler INH SCH ×2 (08:27→12:57)
[2023-06-01] MEDS: Lidocaine 4% 1 each Patch TOP SCH (08:27)
[2023-06-01] MEDS: Cholecalciferol (Vitamin D3) 25 MCG Tab PO SCH (08:27)
[2023-06-01] MEDS: Apixaban 2.5 MG Tab PO SCH (08:29)
[2023-06-01] MEDS: Furosemide 20 MG Tab PO SCH (08:29)
[2023-06-01] MEDS: Acetaminophen 500 MG Tab PO SCH ×2 (08:29→12:57)
[2023-06-01] MEDS: Aspirin 81 MG Tab.EC PO SCH (08:29)
[2023-06-01] MEDS: Pravastatin 20 MG Tab PO SCH (08:29)
[2023-06-01] MEDS: Psyllium 0.52 GM Cap PO SCH (08:29)
[2023-06-01] MEDS: Doxazosin 2 MG Tab PO SCH (08:30)
[2023-06-01] MEDS: metroNIDAZOLE 500 MG Tab PO SCH ×2 (08:30→12:57)
[2023-06-01] MEDS: Fish Oil/Omega-3 Fatty Acids 1 Gm Cap PO SCH (08:30)
[2023-06-01] MEDS: Docusate Sodium 100 MG Cap PO SCH (08:30)
[2023-06-01] MEDS: Polyethylene Glycol 3350 Powder 17 GM Packet PO SCH (08:31)
[2023-06-01 08:33] VITALS: BP 143/67
[2023-06-01] MEDS: Pregabalin 100 MG Cap PO SCH ×2 (08:33→12:57)
[2023-06-01] MEDS: Finasteride 5 MG Tab PO SCH (11:50)
[2023-06-01] MEDS: Cyanocobalamin (Vitamin B12) 1,000 MCG Tab PO SCH (11:51)
== END 2023-06-01 13:00 | disposition home or self-care (01) | DRG 948 ==
LOC: FB.MS 12:35
PROVIDERS: ADMIT Student in an Organized Health Care Education/Training Program; ATTEND Family Medicine
DX: R53.81 Other malaise (principal); C34.32 Malignant neoplasm of lower lobe, left bronchus or lung; I48.11 Longstanding persistent atrial fibrillation; M25.572 Pain in left ankle and joints of left foot; Z51.5 Encounter for palliative care; K63.89 Other specified diseases of intestine; I25.2 Old myocardial infarction; F41.9 Anxiety disorder, unspecified; K21.9 Gastro-esophageal reflux disease without esophagitis; M48.062 Spinal stenosis, lumbar region with neurogenic claudication; G47.33 Obstructive sleep apnea (adult) (pediatric); I25.10 Atherosclerotic heart disease of native coronary artery without angina pectoris; N40.0 Benign prostatic hyperplasia without lower urinary tract symptoms; E78.5 Hyperlipidemia, unspecified; E78.00 Pure hypercholesterolemia, unspecified; K57.30 Diverticulosis of large intestine without perforation or abscess without bleeding; F32.A Depression, unspecified; G89.29 Other chronic pain; M54.9 Dorsalgia, unspecified; I12.9 Hypertensive chronic kidney disease with stage 1 through stage 4 chronic kidney disease, or unspecified chronic kidney disease; N18.30 Chronic kidney disease, stage 3 unspecified; Z79.899 Other long term (current) drug therapy; Z95.0 Presence of cardiac pacemaker; Z86.73 Personal history of transient ischemic attack (TIA), and cerebral infarction without residual deficits; Z79.82 Long term (current) use of aspirin; Z87.891 Personal history of nicotine dependence
CPT/HCPCS: 36415; 84550; 97161-GP; 97165-GO; 97530-GO; 97530-GP; 97535-GO; 99306; 99309; 99315; A9270-GY

== ENCOUNTER 2023-06-03 12:51 | Inpatient (IN) | payer MEDICARE, OTHER ==
[2023-06-03] MEDS ORDERED: Acetaminophen 500 MG Tab PO ONE (13:33)
[2023-06-03 13:38] LABS: BASOPHILS PERCENT AUTO 0.2 % (0.3-3.8); EOSINOPHILS PERCENT AUTO 0.1 % (0.1-6.8); HEMATOCRIT 30.2 % (38.3-50.1); HEMOGLOBIN 10.1 g/dL (12.9-17.7); LYMPHOCYTES ABSOLUTE AUTO 0.4 x10-3/uL (0.5-4.5); LYMPHOCYTES PERCENT AUTO 4.5 % (15.8-45.3); MEAN CORPUSCULAR HEMOGLOBIN 32.3 pg (27.0-33.3); MEAN CORPUSCULAR HGB CONC 33.4 g/dL (28.7-35.3); MEAN CORPUSCULAR VOLUME 96.5 fL (80.8-98.7); MEAN PLATELET VOLUME 7.6 fL (6.7-11.0); MONOCYTES ABSOLUTE AUTO 1.4 x10-3/uL (0.0-1.2); MONOCYTES PERCENT AUTO 16.7 % (5.5-15.2); NEUTROPHILS ABSOLUTE AUTO 6.4 x10-3/uL (1.7-6.9); NEUTROPHILS PERCENT AUTO 78.5 % (40.3-71.8); PLATELET COUNT,PLT 359 x10(3)uL (117-477); RED BLOOD CELL COUNT 3.13 x10(6)uL (3.90-5.90); RED CELL DISTRIBUTION WIDTH 13.6 % (12.4-15.0); WHITE BLOOD CELL COUNT,WBC 8.1 x10-3/uL (3.2-10.1)
[2023-06-03] MEDS: Sodium Chloride 0.9% 10 ML Syringe FLUSH PRN ×2 (13:42→21:19)
[2023-06-03 13:43] LABS: BLOOD UREA NITROGEN,BUN 22 mg/dL (7-18); BUN/CREATININE RATIO 14.7 (9-20); CALCIUM 8.4 mg/dL (8.6-10.2); CARBON DIOXIDE,CO2 31 mmol/L (21-32); CHLORIDE,CL 97 mmol/L (100-110); CREATININE 1.5 mg/dL (0.70-1.30); EST CRCL DRUG DOSING (CG) 42.39 mL/min; ESTIMATED GFR 46 mL/min (>60); GLUCOSE RANDOM 118 mg/dL (80-116); POTASSIUM,K 4.9 mmol/L (3.5-5.3); SODIUM,NA 132 mmol/L (135-145)
[2023-06-03 13:45] LABS: BASE EXCESS VENOUS,POC 1 mmol/L (-2 - 3+); PCO2 VENOUS,POC 43 mmHg (41-51); PH VENOUS,POC 7.39 pH Units (7.32-7.43)
[2023-06-03 13:49] LABS: A/G RATIO 0.6; ALANINE AMINOTRANSFERASE,ALT 18 U/L (12-36); ALBUMIN 2.5 g/dL (3.2-4.6); ALKALINE PHOSPHATASE 85 IU/L (56-112); ASPARTATE AMNIOTRANSFERASE,AST 18 IU/L (5-25); BILIRUBIN TOTAL 0.4 mg/dL (0.1-1.3); PROTEIN TOTAL,TP 6.6 g/dL (6.0-8.0)
[2023-06-03 13:52] LABS: TROPONIN I 23.8 pg/mL (4.0-60.3)
[2023-06-03 14:08] LABS: C-REACTIVE PROTEIN 12.05 mg/dL (<0.33)
[2023-06-03 14:48] LABS: INFLUENZA A NAA NEGATIVE (NEGATIVE); INFLUENZA B NAA NEGATIVE (NEGATIVE); RESPIRATORY SYNCYTIAL VIR NAA NEGATIVE (NEGATIVE)
[2023-06-03] MEDS ORDERED: Sodium Chloride 0.9% 1,000 ML IV ONE (14:48)
[2023-06-03 15:01] LABS: CORONAVIRUS COVID-19 NAA NEGATIVE (NEGATIVE)
[2023-06-03] MEDS ORDERED: Albuterol/Ipratropium 3.0-0.5 MG/3 ML Neb Soln NEB ONE (15:05)
[2023-06-03] MEDS ORDERED: methylPREDNISolone Sodium Succinate 125 MG/2 ML SDV IVPUSH ONE (15:35)
[2023-06-03 16:30] LABS: BILIRUBIN,URINE NEGATIVE (NEGATIVE); GLUCOSE,URINE NORMAL (NORMAL); KETONES,URINE NEGATIVE (NEGATIVE); LEUKOCYTE ESTERASE,URINE SMALL (NEGATIVE); NITRITE,URINE NEGATIVE (NEGATIVE); OCCULT BLOOD,URINE NEGATIVE (NEGATIVE); PROTEIN,URINE NEGATIVE (NEGATIVE); UROBILINOGEN,URINE NORMAL (NEGATIVE)
[2023-06-03 16:32] LABS: APPEARANCE,URINE CLEAR (CLEAR); BACTERIA,URINE FEW (NS); COLOR,URINE ORANGE (YELLOW); MUCUS,URINE FEW (NS); RBC,URINE 0-5 (0-5); SQUAMOUS EPITHELIAL CELLS,UR FEW (NS,R,O); WBC,URINE 0-5 (0-5)
[2023-06-03] MEDS ORDERED: Levofloxacin/Dextrose 5%-Water 750 MG in Premix Bag 1 BAG IV ONE (17:01)
[2023-06-03] MEDS ORDERED: Bisacodyl 5 MG Tab PO PRN (17:41)
[2023-06-03] MEDS ORDERED: Ondansetron 4 MG/2 ML SDV IV PRN (17:41)
[2023-06-03] MEDS ORDERED: Morphine 2 MG/ML SYRINGE IVPUSH PRN (17:41)
[2023-06-03] MEDS ORDERED: Magnesium Hydroxide 400 MG/5 ML Susp 30 ML Cup PO PRN (17:41)
[2023-06-03] MEDS ORDERED: Dextrose 5%-0.45% NaCl 1,000 ML IV SCH (17:45)
[2023-06-03] MEDS ORDERED: Nitroglycerin 0.4 MG Tab.SL SL PRN (17:49)
[2023-06-03] MEDS ORDERED: Acetaminophen 325 MG Tab PO PRN (17:49)
[2023-06-03] MEDS ORDERED: CBD PO PRN (17:49)
[2023-06-03] MEDS: Albuterol/Ipratropium 3.0-0.5 MG/3 ML Neb Soln NEB SCH (19:25)
[2023-06-03] MEDS ORDERED: Albuterol/Ipratropium 3.0-0.5 MG/3 ML Neb Soln INH SCH (21:00)
[2023-06-03] MEDS ORDERED: methylPREDNISolone Sod Succ 125 MG in Sodium Chloride 0.9% 100 ML IV SCH (21:00)
[2023-06-03] MEDS ORDERED: VITAMIN C 1000 MG PO SCH (21:00)
[2023-06-03] MEDS: Docusate Sodium 100 MG Cap PO SCH (21:05)
[2023-06-03] MEDS: METRONIDAZOLE 500 MG PO SCH (21:06)
[2023-06-03] MEDS: MAGNESIUM 250 MG PO SCH (21:07)
[2023-06-03] MEDS: APIXABAN 2.5 MG PO SCH (21:07)
[2023-06-03] MEDS: PREGABALIN 100 MG PO SCH (21:08)
[2023-06-03] MEDS: methylPREDNISolone Sodium Succinate 125 MG/2 ML SDV IVPUSH SCH (21:14)
[2023-06-03] MEDS: Acetaminophen 325 MG Tab PO PRN (22:21)
[2023-06-03] MEDS: Zolpidem 5 MG Tab PO PRN (22:21)
[2023-06-04] MEDS: Albuterol/Ipratropium 3.0-0.5 MG/3 ML Neb Soln NEB SCH ×5 (01:03→23:18)
[2023-06-04 06:49] LABS: HEMATOCRIT 28.7 % (38.3-50.1); HEMOGLOBIN 9.5 g/dL (12.9-17.7); MEAN CORPUSCULAR HEMOGLOBIN 32.2 pg (27.0-33.3); MEAN CORPUSCULAR HGB CONC 33.1 g/dL (28.7-35.3); MEAN CORPUSCULAR VOLUME 97.4 fL (80.8-98.7); MEAN PLATELET VOLUME 7.8 fL (6.7-11.0); PLATELET COUNT,PLT 297 x10(3)uL (117-477); RED BLOOD CELL COUNT 2.94 x10(6)uL (3.90-5.90); RED CELL DISTRIBUTION WIDTH 13.5 % (12.4-15.0)
[2023-06-04 06:55] LABS: BLOOD UREA NITROGEN,BUN 22 mg/dL (7-18); BUN/CREATININE RATIO 14.7 (9-20); CARBON DIOXIDE,CO2 28 mmol/L (21-32); CHLORIDE,CL 96 mmol/L (100-110); CREATININE 1.5 mg/dL (0.70-1.30); EST CRCL DRUG DOSING (CG) 45.53 mL/min; ESTIMATED GFR 46 mL/min (>60); GLUCOSE RANDOM 235 mg/dL (80-116); POTASSIUM,K 4.6 mmol/L (3.5-5.3); SODIUM,NA 130 mmol/L (135-145)
[2023-06-04 07:06] LABS: LYMPHOCYTES PERCENT MAN 6 % (13-37); MONOCYTES PERCENT MAN 6 % (4-12); SEG NEUTROPHILS PERCENT MAN 88 % (46-82)
[2023-06-04] MEDS: METRONIDAZOLE 500 MG PO SCH (08:19)
[2023-06-04] MEDS: APIXABAN 2.5 MG PO SCH (08:21)
[2023-06-04] MEDS: CANNABIDIOL PO PRN (08:21)
[2023-06-04] MEDS: PREGABALIN 100 MG PO SCH (08:22)
[2023-06-04] MEDS: Pravastatin 20 MG Tab PO SCH (08:23)
[2023-06-04] MEDS ORDERED: DOXAZOSIN 4 MG PO SCH (09:00)
[2023-06-04] MEDS ORDERED: Furosemide 20 MG Tab *PT OWN MED PO SCH (09:00)
[2023-06-04] MEDS: methylPREDNISolone Sodium Succinate 125 MG/2 ML SDV IVPUSH SCH (09:37)
[2023-06-04] MEDS: Sodium Chloride 0.9% 10 ML Syringe FLUSH PRN ×3 (09:41→21:15)
[2023-06-04] MEDS: Docusate Sodium 100 MG Cap PO SCH ×2 (09:42→21:05)
[2023-06-04] MEDS: Polyethylene Glycol 3350 Powder 17 GM Packet PO SCH (09:43)
[2023-06-04] MEDS: Cefepime 2 GM Vial IVPUSH SCH ×2 (10:20→21:09)
[2023-06-04] MEDS: Fish Oil/Omega-3 Fatty Acids 1 Gm Cap PO SCH (10:49)
[2023-06-04] MEDS: Cholecalciferol (Vitamin D3) 25 MCG Tab PO SCH (10:49)
[2023-06-04] MEDS: Aspirin 81 MG Tab.EC PO SCH (10:49)
[2023-06-04] MEDS: Finasteride 5 MG Tab PO SCH (11:34)
[2023-06-04] MEDS: Cyanocobalamin (Vitamin B12) 1,000 MCG Tab PO SCH (11:42)
[2023-06-04] MEDS: Pregabalin 100 MG Cap PO SCH ×2 (13:06→20:57)
[2023-06-04] MEDS: metroNIDAZOLE 500 MG Tab PO SCH ×2 (13:07→20:58)
[2023-06-04] MEDS ORDERED: Levofloxacin 750 MG Tab PO SCH (15:00)
[2023-06-04] MEDS: Ascorbic Acid 500 MG Tab PO SCH (20:57)
[2023-06-04] MEDS: Apixaban 2.5 MG Tab PO SCH (20:58)
[2023-06-04] MEDS: MAGNESIUM 250 MG PO SCH (20:58)
[2023-06-04] MEDS: Acetaminophen 325 MG Tab PO PRN (23:16)
[2023-06-04] MEDS: guaiFENesin 600 MG Tab.ER PO PRN (23:16)
[2023-06-04] MEDS: Zolpidem 5 MG Tab PO PRN (23:17)
[2023-06-05] MEDS: Albuterol/Ipratropium 3.0-0.5 MG/3 ML Neb Soln NEB SCH ×4 (06:07→23:12)
[2023-06-05 06:50] LABS: HEMATOCRIT 29.2 % (38.3-50.1); HEMOGLOBIN 9.8 g/dL (12.9-17.7); MEAN CORPUSCULAR HEMOGLOBIN 32.4 pg (27.0-33.3); MEAN CORPUSCULAR HGB CONC 33.7 g/dL (28.7-35.3); MEAN CORPUSCULAR VOLUME 96.2 fL (80.8-98.7); MEAN PLATELET VOLUME 7.7 fL (6.7-11.0); PLATELET COUNT,PLT 336 x10(3)uL (117-477); RED BLOOD CELL COUNT 3.04 x10(6)uL (3.90-5.90); RED CELL DISTRIBUTION WIDTH 13.6 % (12.4-15.0); WHITE BLOOD CELL COUNT,WBC 9.5 x10-3/uL (3.2-10.1)
[2023-06-05 06:53] LABS: BLOOD UREA NITROGEN,BUN 24 mg/dL (7-18); BUN/CREATININE RATIO 17.1 (9-20); CALCIUM 8.2 mg/dL (8.6-10.2); CARBON DIOXIDE,CO2 28 mmol/L (21-32); CHLORIDE,CL 94 mmol/L (100-110); CREATININE 1.4 mg/dL (0.70-1.30); EST CRCL DRUG DOSING (CG) 48.79 mL/min; ESTIMATED GFR 50 mL/min (>60); GLUCOSE RANDOM 165 mg/dL (80-116); POTASSIUM,K 4.9 mmol/L (3.5-5.3); SODIUM,NA 128 mmol/L (135-145)
[2023-06-05 07:02] LABS: BAND PERCENT MAN 1 % (0-6); LYMPHOCYTES PERCENT MAN 3 % (13-37); MONOCYTES PERCENT MAN 7 % (4-12); SEG NEUTROPHILS PERCENT MAN 89 % (46-82)
[2023-06-05] MEDS: predniSONE 20 MG Tab PO SCH (08:42)
[2023-06-05] MEDS: Docusate Sodium 100 MG Cap PO SCH ×2 (08:53→20:48)
[2023-06-05] MEDS: Pregabalin 100 MG Cap PO SCH ×3 (08:54→20:48)
[2023-06-05] MEDS: Aspirin 81 MG Tab.EC PO SCH (08:54)
[2023-06-05] MEDS: Apixaban 2.5 MG Tab PO SCH ×2 (08:54→20:48)
[2023-06-05] MEDS: metroNIDAZOLE 500 MG Tab PO SCH ×3 (08:55→20:48)
[2023-06-05] MEDS: Doxazosin 2 MG Tab PO SCH (08:55)
[2023-06-05] MEDS: Pravastatin 20 MG Tab PO SCH (08:57)
[2023-06-05] MEDS: Polyethylene Glycol 3350 Powder 17 GM Packet PO SCH (09:00)
[2023-06-05] MEDS: Cholecalciferol (Vitamin D3) 25 MCG Tab PO SCH (09:13)
[2023-06-05] MEDS: Furosemide 20 MG Tab PO SCH (10:02)
[2023-06-05] MEDS: Cefepime 2 GM Vial IVPUSH SCH ×2 (10:14→20:55)
[2023-06-05] MEDS: Sodium Chloride 0.9% 10 ML Syringe FLUSH PRN (10:15)
[2023-06-05] MEDS: Fish Oil/Omega-3 Fatty Acids 1 Gm Cap PO SCH (10:23)
[2023-06-05] MEDS: guaiFENesin 600 MG Tab.ER PO PRN ×2 (12:02→22:31)
[2023-06-05] MEDS: Finasteride 5 MG Tab PO SCH (12:14)
[2023-06-05] MEDS: Cyanocobalamin (Vitamin B12) 1,000 MCG Tab PO SCH (13:28)
[2023-06-05] MEDS ORDERED: Levofloxacin/Dextrose 5%-Water 750 MG in Premix Bag 1 BAG IV SCH (15:00)
[2023-06-05] MEDS: Levofloxacin 750 MG Tab PO SCH (16:54)
[2023-06-05 17:20] LABS: BLOOD UREA NITROGEN,BUN 28 mg/dL (7-18); CALCIUM 7.8 mg/dL (8.6-10.2); CARBON DIOXIDE,CO2 30 mmol/L (21-32); CHLORIDE,CL 93 mmol/L (100-110); CREATININE 1.4 mg/dL (0.70-1.30); EST CRCL DRUG DOSING (CG) 48.79 mL/min; ESTIMATED GFR 50 mL/min (>60); GLUCOSE RANDOM 192 mg/dL (80-116); SODIUM,NA 127 mmol/L (135-145)
[2023-06-05] MEDS ORDERED: Sodium Chloride 0.9% 1,000 ML IV SCH (18:30)
[2023-06-05] MEDS: Ascorbic Acid 500 MG Tab PO SCH (20:49)
[2023-06-05] MEDS: MAGNESIUM 250 MG PO SCH (20:49)
[2023-06-05] MEDS: Zolpidem 5 MG Tab PO PRN (22:31)
[2023-06-05] MEDS: Acetaminophen 325 MG Tab PO PRN (22:31)
[2023-06-05] MEDS: CANNABIDIOL PO PRN (22:35)
[2023-06-06] MEDS: Acetaminophen 325 MG Tab PO PRN ×4 (05:36→23:21)
[2023-06-06] MEDS: Albuterol/Ipratropium 3.0-0.5 MG/3 ML Neb Soln NEB SCH ×4 (05:36→23:15)
[2023-06-06] MEDS: Sodium Chloride 0.9% 1,000 ML IV SCH ×2 (06:33→20:46)
[2023-06-06 06:49] LABS: BASOPHILS PERCENT AUTO 0.1 % (0.3-3.8); HEMATOCRIT 29.4 % (38.3-50.1); HEMOGLOBIN 9.9 g/dL (12.9-17.7); LYMPHOCYTES ABSOLUTE AUTO 0.5 x10-3/uL (0.5-4.5); LYMPHOCYTES PERCENT AUTO 6.4 % (15.8-45.3); MEAN CORPUSCULAR HEMOGLOBIN 32.1 pg (27.0-33.3); MEAN CORPUSCULAR HGB CONC 33.6 g/dL (28.7-35.3); MEAN CORPUSCULAR VOLUME 95.6 fL (80.8-98.7); MEAN PLATELET VOLUME 7.5 fL (6.7-11.0); MONOCYTES ABSOLUTE AUTO 1.1 x10-3/uL (0.0-1.2); MONOCYTES PERCENT AUTO 14.4 % (5.5-15.2); NEUTROPHILS ABSOLUTE AUTO 5.8 x10-3/uL (1.7-6.9); NEUTROPHILS PERCENT AUTO 79.1 % (40.3-71.8); PLATELET COUNT,PLT 336 x10(3)uL (117-477); RED BLOOD CELL COUNT 3.08 x10(6)uL (3.90-5.90); RED CELL DISTRIBUTION WIDTH 13.7 % (12.4-15.0); WHITE BLOOD CELL COUNT,WBC 7.4 x10-3/uL (3.2-10.1)
[2023-06-06 06:54] LABS: BLOOD UREA NITROGEN,BUN 24 mg/dL (7-18); BUN/CREATININE RATIO 18.5 (9-20); CALCIUM 8.2 mg/dL (8.6-10.2); CARBON DIOXIDE,CO2 29 mmol/L (21-32); CHLORIDE,CL 96 mmol/L (100-110); CREATININE 1.3 mg/dL (0.70-1.30); EST CRCL DRUG DOSING (CG) 52.54 mL/min; ESTIMATED GFR 55 mL/min (>60); GLUCOSE RANDOM 125 mg/dL (80-116); POTASSIUM,K 4.7 mmol/L (3.5-5.3); SODIUM,NA 130 mmol/L (135-145)
[2023-06-06] MEDS: predniSONE 20 MG Tab PO SCH (08:05)
[2023-06-06] MEDS: Docusate Sodium 100 MG Cap PO SCH ×2 (08:49→20:51)
[2023-06-06] MEDS: metroNIDAZOLE 500 MG Tab PO SCH ×3 (08:49→20:54)
[2023-06-06] MEDS: Pregabalin 100 MG Cap PO SCH ×3 (08:50→21:08)
[2023-06-06] MEDS: Pravastatin 20 MG Tab PO SCH (08:51)
[2023-06-06] MEDS: Apixaban 2.5 MG Tab PO SCH ×2 (08:51→20:54)
[2023-06-06] MEDS: Doxazosin 2 MG Tab PO SCH (08:52)
[2023-06-06] MEDS: Furosemide 20 MG Tab PO SCH (08:55)
[2023-06-06] MEDS: Cholecalciferol (Vitamin D3) 25 MCG Tab PO SCH (08:55)
[2023-06-06] MEDS: Aspirin 81 MG Tab.EC PO SCH (08:55)
[2023-06-06] MEDS: Cefepime 2 GM Vial IVPUSH SCH ×2 (08:56→21:35)
[2023-06-06] MEDS: Fish Oil/Omega-3 Fatty Acids 1 Gm Cap PO SCH (08:58)
[2023-06-06] MEDS: Polyethylene Glycol 3350 Powder 17 GM Packet PO SCH (08:59)
[2023-06-06] MEDS: Finasteride 5 MG Tab PO SCH (11:57)
[2023-06-06] MEDS: Cyanocobalamin (Vitamin B12) 1,000 MCG Tab PO SCH (11:58)
[2023-06-06] MEDS: MAGNESIUM 250 MG PO SCH (20:56)
[2023-06-06] MEDS: Ascorbic Acid 500 MG Tab PO SCH (20:58)
[2023-06-06] MEDS: Zolpidem 5 MG Tab PO PRN (23:20)
[2023-06-06] MEDS: CANNABIDIOL PO PRN (23:20)
[2023-06-07] MEDS: Albuterol/Ipratropium 3.0-0.5 MG/3 ML Neb Soln NEB SCH ×4 (05:41→23:07)
[2023-06-07 06:40] LABS: MEAN CORPUSCULAR HEMOGLOBIN 32.1 pg (27.0-33.3); MEAN CORPUSCULAR HGB CONC 33.4 g/dL (28.7-35.3); MEAN CORPUSCULAR VOLUME 96.1 fL (80.8-98.7); MEAN PLATELET VOLUME 7.3 fL (6.7-11.0); PLATELET COUNT,PLT 324 x10(3)uL (117-477); RED BLOOD CELL COUNT 3.12 x10(6)uL (3.90-5.90); RED CELL DISTRIBUTION WIDTH 13.4 % (12.4-15.0); WHITE BLOOD CELL COUNT,WBC 5.7 x10-3/uL (3.2-10.1)
[2023-06-07 06:47] LABS: BLOOD UREA NITROGEN,BUN 22 mg/dL (7-18); BUN/CREATININE RATIO 16.9 (9-20); CALCIUM 8.2 mg/dL (8.6-10.2); CARBON DIOXIDE,CO2 31 mmol/L (21-32); CHLORIDE,CL 100 mmol/L (100-110); CREATININE 1.3 mg/dL (0.70-1.30); EST CRCL DRUG DOSING (CG) 52.54 mL/min; ESTIMATED GFR 55 mL/min (>60); GLUCOSE RANDOM 107 mg/dL (80-116); POTASSIUM,K 4.8 mmol/L (3.5-5.3); SODIUM,NA 134 mmol/L (135-145)
[2023-06-07 07:00] LABS: LYMPHOCYTES PERCENT MAN 11 % (13-37); MONOCYTES PERCENT MAN 11 % (4-12); SEG NEUTROPHILS PERCENT MAN 78 % (46-82)
[2023-06-07] MEDS: predniSONE 20 MG Tab PO SCH (08:29)
[2023-06-07] MEDS: Docusate Sodium 100 MG Cap PO SCH ×2 (08:30→20:30)
[2023-06-07] MEDS: Fish Oil/Omega-3 Fatty Acids 1 Gm Cap PO SCH (08:30)
[2023-06-07] MEDS: Apixaban 2.5 MG Tab PO SCH ×2 (08:30→20:30)
[2023-06-07] MEDS: Furosemide 20 MG Tab PO SCH (08:31)
[2023-06-07] MEDS: Aspirin 81 MG Tab.EC PO SCH (08:31)
[2023-06-07] MEDS: Polyethylene Glycol 3350 Powder 17 GM Packet PO SCH (08:32)
[2023-06-07] MEDS: Cholecalciferol (Vitamin D3) 25 MCG Tab PO SCH (08:32)
[2023-06-07] MEDS: metroNIDAZOLE 500 MG Tab PO SCH ×3 (08:32→20:30)
[2023-06-07] MEDS: Pregabalin 100 MG Cap PO SCH ×3 (08:35→20:30)
[2023-06-07] MEDS: Doxazosin 2 MG Tab PO SCH (08:35)
[2023-06-07] MEDS: Pravastatin 20 MG Tab PO SCH (08:38)
[2023-06-07] MEDS: Sodium Chloride 0.9% 10 ML Syringe FLUSH PRN ×2 (08:40→20:48)
[2023-06-07] MEDS: Cefepime 2 GM Vial IVPUSH SCH ×2 (08:42→20:43)
[2023-06-07] MEDS: Cyanocobalamin (Vitamin B12) 1,000 MCG Tab PO SCH (12:36)
[2023-06-07] MEDS: Finasteride 5 MG Tab PO SCH (12:36)
[2023-06-07] MEDS: Levofloxacin 750 MG Tab PO SCH (16:41)
[2023-06-07] MEDS: Ascorbic Acid 500 MG Tab PO SCH (20:30)
[2023-06-07] MEDS: MAGNESIUM 250 MG PO SCH (20:36)
[2023-06-07] MEDS: Zolpidem 5 MG Tab PO PRN (23:06)
[2023-06-07] MEDS: Acetaminophen 325 MG Tab PO PRN (23:06)
[2023-06-07] MEDS: CANNABIDIOL PO PRN (23:07)
[2023-06-08] MEDS: Albuterol/Ipratropium 3.0-0.5 MG/3 ML Neb Soln NEB SCH (05:59)
[2023-06-08 06:25] LABS: BASOPHILS PERCENT AUTO 0.1 % (0.3-3.8); EOSINOPHILS PERCENT AUTO 0.2 % (0.1-6.8); HEMATOCRIT 30.7 % (38.3-50.1); HEMOGLOBIN 10.5 g/dL (12.9-17.7); LYMPHOCYTES ABSOLUTE AUTO 0.6 x10-3/uL (0.5-4.5); LYMPHOCYTES PERCENT AUTO 11.1 % (15.8-45.3); MEAN CORPUSCULAR HEMOGLOBIN 33.1 pg (27.0-33.3); MEAN CORPUSCULAR HGB CONC 34.3 g/dL (28.7-35.3); MEAN CORPUSCULAR VOLUME 96.4 fL (80.8-98.7); MEAN PLATELET VOLUME 7.1 fL (6.7-11.0); MONOCYTES ABSOLUTE AUTO 0.9 x10-3/uL (0.0-1.2); MONOCYTES PERCENT AUTO 16.5 % (5.5-15.2); NEUTROPHILS PERCENT AUTO 72.1 % (40.3-71.8); PLATELET COUNT,PLT 342 x10(3)uL (117-477); RED BLOOD CELL COUNT 3.18 x10(6)uL (3.90-5.90); RED CELL DISTRIBUTION WIDTH 13.7 % (12.4-15.0); WHITE BLOOD CELL COUNT,WBC 5.5 x10-3/uL (3.2-10.1)
[2023-06-08 06:44] LABS: BLOOD UREA NITROGEN,BUN 18 mg/dL (7-18); BUN/CREATININE RATIO 13.8 (9-20); CALCIUM 8.5 mg/dL (8.6-10.2); CARBON DIOXIDE,CO2 31 mmol/L (21-32); CHLORIDE,CL 100 mmol/L (100-110); CREATININE 1.3 mg/dL (0.70-1.30); EST CRCL DRUG DOSING (CG) 52.54 mL/min; ESTIMATED GFR 55 mL/min (>60); GLUCOSE RANDOM 109 mg/dL (80-116); POTASSIUM,K 4.6 mmol/L (3.5-5.3); SODIUM,NA 136 mmol/L (135-145)
[2023-06-08] MEDS: predniSONE 20 MG Tab PO SCH (08:13)
[2023-06-08] MEDS: Pravastatin 20 MG Tab PO SCH (08:14)
[2023-06-08] MEDS: Docusate Sodium 100 MG Cap PO SCH (08:14)
[2023-06-08] MEDS: Aspirin 81 MG Tab.EC PO SCH (08:15)
[2023-06-08] MEDS: Cholecalciferol (Vitamin D3) 25 MCG Tab PO SCH (08:15)
[2023-06-08] MEDS: Doxazosin 2 MG Tab PO SCH (08:16)
[2023-06-08] MEDS: Fish Oil/Omega-3 Fatty Acids 1 Gm Cap PO SCH (08:16)
[2023-06-08] MEDS: Apixaban 2.5 MG Tab PO SCH (08:16)
[2023-06-08] MEDS: metroNIDAZOLE 500 MG Tab PO SCH (08:16)
[2023-06-08] MEDS: Polyethylene Glycol 3350 Powder 17 GM Packet PO SCH (08:18)
[2023-06-08] MEDS: Sodium Chloride 0.9% 10 ML Syringe FLUSH PRN (08:23)
[2023-06-08] MEDS: Cefepime 2 GM Vial IVPUSH SCH (08:23)
[2023-06-08] MEDS: Pregabalin 100 MG Cap PO SCH (08:23)
[2023-06-08] MEDS: Furosemide 20 MG Tab PO SCH (08:27)
[2023-06-08] MEDS: Acetaminophen 325 MG Tab PO PRN (10:33)
[2023-06-08 10:39] VITALS: BP 114/60; PULSE 71
== END 2023-06-08 11:05 | disposition home or self-care (01) | DRG 193 ==
LOC: FB.ED 12:51 → FB.MS 17:30 → UNDOADMOB 17:30 → FB.MS 20:11 → OBSVTOIN 06-04 10:24
PROVIDERS: ADMIT Family Medicine; ATTEND Family Medicine
DX: J18.9 Pneumonia, unspecified organism (principal); J96.01 Acute respiratory failure with hypoxia; C34.92 Malignant neoplasm of unspecified part of left bronchus or lung; I13.0 Hypertensive heart and chronic kidney disease with heart failure and stage 1 through stage 4 chronic kidney disease, or unspecified chronic kidney disease; N17.9 Acute kidney failure, unspecified; E87.1 Hypo-osmolality and hyponatremia; I48.11 Longstanding persistent atrial fibrillation; J44.1 Chronic obstructive pulmonary disease with (acute) exacerbation; G47.33 Obstructive sleep apnea (adult) (pediatric); Z95.0 Presence of cardiac pacemaker; I25.2 Old myocardial infarction; N40.0 Benign prostatic hyperplasia without lower urinary tract symptoms; K21.9 Gastro-esophageal reflux disease without esophagitis; F41.9 Anxiety disorder, unspecified; Z95.5 Presence of coronary angioplasty implant and graft; Z87.891 Personal history of nicotine dependence; M48.061 Spinal stenosis, lumbar region without neurogenic claudication; I45.10 Unspecified right bundle-branch block; Z88.8 Allergy status to other drugs, medicaments and biological substances; Z79.82 Long term (current) use of aspirin; Z79.899 Other long term (current) drug therapy; Z79.01 Long term (current) use of anticoagulants; E78.00 Pure hypercholesterolemia, unspecified; F32.A Depression, unspecified; E66.9 Obesity, unspecified; Z86.73 Personal history of transient ischemic attack (TIA), and cerebral infarction without residual deficits; Z90.89 Acquired absence of other organs; Z98.890 Other specified postprocedural states; I50.9 Heart failure, unspecified; E88.09 Other disorders of plasma-protein metabolism, not elsewhere classified; I25.10 Atherosclerotic heart disease of native coronary artery without angina pectoris; N18.30 Chronic kidney disease, stage 3 unspecified; D63.1 Anemia in chronic kidney disease; K63.89 Other specified diseases of intestine; I49.5 Sick sinus syndrome; I16.0 Hypertensive urgency; R53.81 Other malaise; Z68.30 Body mass index [BMI] 30.0-30.9, adult
CPT/HCPCS: 0241U; 36415; 71046; 74176; 80048; 80053; 81001; 83605; 84484; 85025; 86140; 87040; 93005; 94150; 94640; 96361; 96365; 96366; 96375; 96376; 97165-GO; 99285-25; A9270-GY; C1758; G0378; J0692; J1956; J2930; J3490; J7030; J7042; J7512; J7620

== ENCOUNTER 2023-06-16 17:44 | Emergency (ER) | payer MEDICARE, OTHER ==
[2023-06-16] MEDS ORDERED: Acetaminophen 500 MG Tab PO ONE (17:57)
[2023-06-16 18:30] LABS: BASOPHILS PERCENT AUTO 0.2 % (0.3-3.8); EOSINOPHILS PERCENT AUTO 0.1 % (0.1-6.8); HEMATOCRIT 30.6 % (38.3-50.1); HEMOGLOBIN 10.3 g/dL (12.9-17.7); LYMPHOCYTES ABSOLUTE AUTO 0.6 x10-3/uL (0.5-4.5); LYMPHOCYTES PERCENT AUTO 5.2 % (15.8-45.3); MEAN CORPUSCULAR HEMOGLOBIN 31.7 pg (27.0-33.3); MEAN CORPUSCULAR HGB CONC 33.7 g/dL (28.7-35.3); MEAN CORPUSCULAR VOLUME 94.2 fL (80.8-98.7); MEAN PLATELET VOLUME 7.6 fL (6.7-11.0); MONOCYTES ABSOLUTE AUTO 1.4 x10-3/uL (0.0-1.2); MONOCYTES PERCENT AUTO 12.4 % (5.5-15.2); NEUTROPHILS ABSOLUTE AUTO 9.6 x10-3/uL (1.7-6.9); NEUTROPHILS PERCENT AUTO 82.1 % (40.3-71.8); PLATELET COUNT,PLT 248 x10(3)uL (117-477); RED BLOOD CELL COUNT 3.25 x10(6)uL (3.90-5.90); RED CELL DISTRIBUTION WIDTH 14.2 % (12.4-15.0); WHITE BLOOD CELL COUNT,WBC 11.6 x10-3/uL (3.2-10.1)
[2023-06-16 18:40] LABS: LACTIC ACID 0.9 mmol/L (0.4-2.0)
[2023-06-16 19:41] LABS: BLOOD UREA NITROGEN,BUN 23 mg/dL (7-18); BUN/CREATININE RATIO 16.4 (9-20); CALCIUM 8.3 mg/dL (8.6-10.2); CARBON DIOXIDE,CO2 29 mmol/L (21-32); CHLORIDE,CL 98 mmol/L (100-110); CREATININE 1.4 mg/dL (0.70-1.30); ESTIMATED GFR 50 mL/min (>60); GLUCOSE RANDOM 138 mg/dL (80-116); POTASSIUM,K 4.6 mmol/L (3.5-5.3); SODIUM,NA 133 mmol/L (135-145)
[2023-06-16 19:47] LABS: A/G RATIO 0.6; ALANINE AMINOTRANSFERASE,ALT 17 U/L (12-36); ALBUMIN 2.4 g/dL (3.2-4.6); ALKALINE PHOSPHATASE 71 IU/L (56-112); ASPARTATE AMNIOTRANSFERASE,AST 19 IU/L (5-25); BILIRUBIN TOTAL 0.3 mg/dL (0.1-1.3); PROTEIN TOTAL,TP 6.7 g/dL (6.0-8.0)
[2023-06-16] MEDS ORDERED: Sodium Chloride 0.9% 1,000 ML IV SCH (20:00)
[2023-06-16 21:12] VITALS: BP 116/67; PULSE 69
== END 2023-06-16 21:07 | disposition home or self-care (01) ==
LOC: FB.ED 17:44
DX: J18.9 Pneumonia, unspecified organism (principal); I95.9 Hypotension, unspecified; E87.1 Hypo-osmolality and hyponatremia; I48.91 Unspecified atrial fibrillation; E78.00 Pure hypercholesterolemia, unspecified; I10 Essential (primary) hypertension; I25.2 Old myocardial infarction; Z20.822 Contact with and (suspected) exposure to COVID-19; Z87.891 Personal history of nicotine dependence; Z88.8 Allergy status to other drugs, medicaments and biological substances; Z79.899 Other long term (current) drug therapy; Z79.01 Long term (current) use of anticoagulants; Z79.82 Long term (current) use of aspirin; Z95.0 Presence of cardiac pacemaker; Z95.5 Presence of coronary angioplasty implant and graft
CPT/HCPCS: 36415; 71045; 80053; 83605; 85025; 96360; 99284-25; A9270-GY; J7030; U0002

== ENCOUNTER 2023-12-28 21:27 | Emergency (ER) | payer MEDICARE, OTHER ==
[2023-12-28] MEDS ORDERED: Acetaminophen/HYDROcodone 325-5 MG Tab PO ONE (21:28)
[2023-12-28 21:52] VITALS: PULSE 70
[2023-12-28 22:59] VITALS: BP 112/83
== END 2023-12-28 22:43 | disposition home or self-care (01) ==
LOC: FB.ED 21:27
DX: M79.18 Myalgia, other site (principal); I10 Essential (primary) hypertension; I25.2 Old myocardial infarction; I48.91 Unspecified atrial fibrillation; K21.9 Gastro-esophageal reflux disease without esophagitis; E78.00 Pure hypercholesterolemia, unspecified; E66.9 Obesity, unspecified; Z86.73 Personal history of transient ischemic attack (TIA), and cerebral infarction without residual deficits; Z95.5 Presence of coronary angioplasty implant and graft; Z95.0 Presence of cardiac pacemaker; Z79.899 Other long term (current) drug therapy; Z79.01 Long term (current) use of anticoagulants; Z79.82 Long term (current) use of aspirin; Z88.8 Allergy status to other drugs, medicaments and biological substances; Z68.28 Body mass index [BMI] 28.0-28.9, adult
CPT/HCPCS: 71046; 93005; 93010; 99283; A9270-GY

== ENCOUNTER 2024-03-02 11:46 | Emergency (ER) | payer MEDICARE, OTHER ==
[2024-03-02] MEDS ORDERED: Sodium Chloride 0.9% 10 ML Syringe FLUSH PRN (11:49)
[2024-03-02 12:15] LABS: BASOPHILS PERCENT AUTO 0.3 % (0.3-3.8); EOSINOPHILS ABSOLUTE AUTO 0.1 x10-3/uL (0.0-0.6); HEMATOCRIT 38.9 % (38.3-50.1); LYMPHOCYTES ABSOLUTE AUTO 0.8 x10-3/uL (0.5-4.5); LYMPHOCYTES PERCENT AUTO 14.7 % (15.8-45.3); MEAN CORPUSCULAR HEMOGLOBIN 32.2 pg (27.0-33.3); MEAN CORPUSCULAR HGB CONC 33.3 g/dL (28.7-35.3); MEAN CORPUSCULAR VOLUME 96.6 fL (80.8-98.7); MEAN PLATELET VOLUME 7.9 fL (6.7-11.0); MONOCYTES ABSOLUTE AUTO 0.9 x10-3/uL (0.0-1.2); MONOCYTES PERCENT AUTO 16.9 % (5.5-15.2); NEUTROPHILS ABSOLUTE AUTO 3.5 x10-3/uL (1.7-6.9); NEUTROPHILS PERCENT AUTO 67.1 % (40.3-71.8); PLATELET COUNT,PLT 205 x10(3)uL (117-477); RED BLOOD CELL COUNT 4.03 x10(6)uL (3.90-5.90); RED CELL DISTRIBUTION WIDTH 13.1 % (12.4-15.0); WHITE BLOOD CELL COUNT,WBC 5.2 x10-3/uL (3.2-10.1)
[2024-03-02 12:19] LABS: BLOOD UREA NITROGEN,BUN 18 mg/dL (7-18); BUN/CREATININE RATIO 13.8 (9-20); CALCIUM 9.2 mg/dL (8.6-10.2); CARBON DIOXIDE,CO2 30 mmol/L (21-32); CHLORIDE,CL 93 mmol/L (100-110); CREATININE 1.3 mg/dL (0.70-1.30); EST CRCL DRUG DOSING (CG) 50.94 mL/min; ESTIMATED GFR 55 mL/min (>60); GLUCOSE RANDOM 109 mg/dL (80-116); POTASSIUM,K 4.9 mmol/L (3.5-5.3); SODIUM,NA 129 mmol/L (135-145)
[2024-03-02 12:25] LABS: A/G RATIO 0.8; ALANINE AMINOTRANSFERASE,ALT 19 U/L (12-36); ALBUMIN 3.4 g/dL (3.2-4.6); ALKALINE PHOSPHATASE 89 IU/L (56-112); AMYLASE 51 U/L (25-115); ASPARTATE AMNIOTRANSFERASE,AST 26 IU/L (5-25); BILIRUBIN TOTAL 0.7 mg/dL (0.1-1.3); PROTEIN TOTAL,TP 7.6 g/dL (6.0-8.0)
[2024-03-02] MEDS: Morphine 2 MG/ML SYRINGE IVPUSH ONE (13:21)
[2024-03-02] MEDS: Ondansetron 4 MG/2 ML SDV IVPUSH ONE (13:22)
[2024-03-02] MEDS: Iopamidol 755 Mg/ML 100 ML Bottle IV SCH (13:44)
[2024-03-02 14:23] LABS: BILIRUBIN,URINE NEGATIVE (NEGATIVE); GLUCOSE,URINE NORMAL (NORMAL); KETONES,URINE NEGATIVE (NEGATIVE); LEUKOCYTE ESTERASE,URINE NEGATIVE (NEGATIVE); NITRITE,URINE NEGATIVE (NEGATIVE); OCCULT BLOOD,URINE NEGATIVE (NEGATIVE); PROTEIN,URINE NEGATIVE (NEGATIVE); UROBILINOGEN,URINE NORMAL (NEGATIVE)
[2024-03-02 14:27] LABS: APPEARANCE,URINE CLEAR (CLEAR); COLOR,URINE YELLOW (YELLOW); RBC,URINE NOT SEEN (0-5); SQUAMOUS EPITHELIAL CELLS,UR RARE (NS,R,O); WBC,URINE 0-5 (0-5)
[2024-03-02 14:28] LABS: BACTERIA,URINE OCCASIONAL (NS)
[2024-03-02 14:59] VITALS: BP 133/88; PULSE 69
== END 2024-03-02 15:23 ==
LOC: FB.ED 11:46
DX: K56.609 Unspecified intestinal obstruction, unspecified as to partial versus complete obstruction (principal); I48.91 Unspecified atrial fibrillation; E78.00 Pure hypercholesterolemia, unspecified; I10 Essential (primary) hypertension; I25.2 Old myocardial infarction; K21.9 Gastro-esophageal reflux disease without esophagitis; Z88.8 Allergy status to other drugs, medicaments and biological substances; Z79.899 Other long term (current) drug therapy; Z86.19 Personal history of other infectious and parasitic diseases; Z79.82 Long term (current) use of aspirin; Z79.01 Long term (current) use of anticoagulants; Z87.891 Personal history of nicotine dependence; Z68.28 Body mass index [BMI] 28.0-28.9, adult
CPT/HCPCS: 36415; 51798; 74177; 80053; 81001; 82150; 83690; 85025; 99285-25; Q9967

== ENCOUNTER 2024-07-31 17:55 | Emergency (ER) | payer MEDICARE, OTHER ==
[2024-07-31 18:28] VITALS: BP 141/81; PULSE 77
[2024-07-31 18:42] LABS: HEMATOCRIT 24.5 % (38.3-50.1); HEMOGLOBIN 8.1 g/dL (12.9-17.7); MEAN CORPUSCULAR HEMOGLOBIN 32.3 pg (27.0-33.3); MEAN CORPUSCULAR VOLUME 97.9 fL (80.8-98.7); MEAN PLATELET VOLUME 7.7 fL (6.7-11.0); PLATELET COUNT,PLT 93 x10(3)uL (117-477); RED CELL DISTRIBUTION WIDTH 15.9 % (12.4-15.0)
[2024-07-31 18:43] LABS: BLOOD UREA NITROGEN,BUN 14 mg/dL (7-18); CALCIUM 8.4 mg/dL (8.6-10.2); CARBON DIOXIDE,CO2 28 mmol/L (21-32); CHLORIDE,CL 96 mmol/L (100-110); CREATININE 1.4 mg/dL (0.70-1.30); ESTIMATED GFR 50 mL/min (>60); GLUCOSE RANDOM 147 mg/dL (80-116); POTASSIUM,K 4.7 mmol/L (3.5-5.3); SODIUM,NA 130 mmol/L (135-145)
[2024-07-31 18:49] LABS: A/G RATIO 0.8; ALANINE AMINOTRANSFERASE,ALT 38 U/L (12-36); ALBUMIN 2.9 g/dL (3.2-4.6); ALKALINE PHOSPHATASE 180 IU/L (56-112); ASPARTATE AMNIOTRANSFERASE,AST 35 IU/L (5-25); BILIRUBIN TOTAL 0.5 mg/dL (0.1-1.3); PROTEIN TOTAL,TP 6.4 g/dL (6.0-8.0)
[2024-07-31 18:52] LABS: WHITE BLOOD CELL COUNT,WBC 55.3 x10-3/uL (3.2-10.1)
[2024-07-31 19:08] LABS: BAND PERCENT MAN 3 % (0-6); BLASTS PERCENT MAN 5 % (0-0); LYMPHOCYTES PERCENT MAN 3 % (13-37); METAMYELOCYTE PERCENT MAN 1 % (0-0); MONOCYTES PERCENT MAN 4 % (4-12); MYELOCYTE PERCENT MAN 1 % (0-0); NRBC MANUAL 2 /100WBC (0-0); SEG NEUTROPHILS PERCENT MAN 83 % (46-82)
[2024-07-31] MEDS: Iopamidol 755 Mg/ML 100 ML Bottle IV ONE (19:12)
== END 2024-07-31 20:09 | disposition home or self-care (01) ==
LOC: FB.ED 17:55
DX: R07.89 Other chest pain (principal); D64.9 Anemia, unspecified; C78.02 Secondary malignant neoplasm of left lung; I10 Essential (primary) hypertension; E78.00 Pure hypercholesterolemia, unspecified; Z88.8 Allergy status to other drugs, medicaments and biological substances; Z79.82 Long term (current) use of aspirin; Z79.899 Other long term (current) drug therapy
CPT/HCPCS: 36415; 71275; 80053; 83605; 85025; 85379; 86140; 99285; Q9967; 93005

== ENCOUNTER 2024-11-10 11:33 | Inpatient (IN) | payer OTHER, MEDICARE ==
[2024-11-10] MEDS ORDERED: ALBUTEROL INH PRN ×2 (11:36→12:21)
[2024-11-10] MEDS ORDERED: Bisacodyl 10 MG Supp *PTOM RECTAL PRN (11:37)
[2024-11-10] MEDS ORDERED: PROCHLORPERAZINE 10 MG PO PRN (11:39)
[2024-11-10] MEDS ORDERED: Haloperidol Lactate 2 MG/ML Oral Soln 15 ML Bottle *PTOM PO PRN ×2 (11:42→12:22)
[2024-11-10] MEDS ORDERED: Hyoscyamine 0.125 MG Tab.SL *PTOM SL PRN (11:43)
[2024-11-10] MEDS ORDERED: Loperamide 2 MG Cap *PTOM PO PRN (11:44)
[2024-11-10] MEDS ORDERED: LORazepam 0.5 MG Tab PO PRN (11:55)
[2024-11-10] MEDS ORDERED: Ondansetron 4 MG Tab.DIS PRN (12:29)
[2024-11-10] MEDS: Dexamethasone 4 MG Tab *PTOM PO SCH (12:53)
[2024-11-10] MEDS: LORazepam 0.5 MG Tab PO SCH (13:02)
[2024-11-10] MEDS: Morphine 10 MG/0.5 ML Oral Syringe PO PRN (13:04)
[2024-11-10] MEDS: Acetaminophen 650 MG Tab.ER *PTOM PO SCH (13:08)
[2024-11-10] MEDS: Methadone 10 MG Tab PO SCH (20:56)
[2024-11-10] MEDS: Pregabalin 100 MG Cap PO SCH (20:57)
[2024-11-10] MEDS: Albuterol/Ipratropium 3.0-0.5 MG/3 ML Neb Soln *PTOM INH SCH (20:57)
[2024-11-10] MEDS: Mirtazapine 15 MG Tab *PTOM PO SCH (20:58)
[2024-11-10] MEDS: TYLENOL PM PO SCH (20:58)
[2024-11-10] MEDS: Sennosides/Docusate Sodium 50-8.6 MG Tab *PTOM PO SCH (20:59)
[2024-11-10] MEDS: BIOFREEZE TOP PRN (21:01)
[2024-11-11] MEDS: Famotidine 20 MG Tab *PTOM PO SCH (08:28)
[2024-11-11] MEDS: POLYETHYLENE GLYCOL PO SCH (08:33)
[2024-11-12] MEDS: LORazepam 1 MG Tab PO SCH (12:13)
[2024-11-12] MEDS: Morphine 15 MG Tab PO PRN (14:36)
[2024-11-12] MEDS: Methadone 10 MG Tab PO SCH (17:44)
[2024-11-12] MEDS: Mirtazapine 15 MG Tab *PTOM PO PRN (20:01)
[2024-11-12] MEDS: Pregabalin 100 MG Cap PO SCH (20:29)
[2024-11-12] MEDS ORDERED: Morphine 10 MG/0.5 ML Oral Syringe PO ONE (22:19)
[2024-11-12] MEDS ORDERED: Morphine 30 MG Tab.ER PO ONE (22:30)
[2024-11-12] MEDS: Morphine 10 MG/0.5 ML Oral Syringe PO ONE (22:41)
[2024-11-12] MEDS: Finasteride 5 MG Tab PO SCH (22:41)
[2024-11-12] MEDS: Morphine 15 MG Tab PO ONE (22:41)
[2024-11-13 04:49] VITALS: BP 141/83; PULSE 70
[2024-11-13] MEDS ORDERED: Albuterol 6.7 GM Inhaler INH PRN (10:05)
[2024-11-13] MEDS: Morphine 10 MG/0.5 ML Oral Syringe SL PRN (11:40)
[2024-11-13] MEDS ORDERED: LORazepam 2 MG/ML SDV IVPUSH PRN (12:06)
[2024-11-13] MEDS: Sodium Chloride 0.9% 10 ML Syringe FLUSH PRN (12:15)
[2024-11-13] MEDS: Morphine 10 MG/ML SDV IVPUSH PRN (12:18)
[2024-11-13] MEDS ORDERED: LORazepam 2 MG/ML SDV IVPUSH SCH (14:00)
== END 2024-11-13 10:05 | disposition critical access hospital (66) | DRG 951 ==
LOC: FB.MS 11:33
PROVIDERS: ADMIT Internal Medicine; ATTEND Internal Medicine
DX: Z51.5 Encounter for palliative care (principal); C34.90 Malignant neoplasm of unspecified part of unspecified bronchus or lung; Z75.5 Holiday relief care; F41.9 Anxiety disorder, unspecified; Z88.8 Allergy status to other drugs, medicaments and biological substances
CPT/HCPCS: 51702; 94640; A9270-GY; J2272; J7620; J8540; Q5005

== ENCOUNTER 2024-11-13 10:05 | Inpatient (IN) | payer OTHER, MEDICARE ==
[2024-11-13] MEDS ORDERED: Bisacodyl 10 MG Supp RECTAL PRN (13:42)
[2024-11-13] MEDS ORDERED: Loperamide 2 MG Cap PO PRN (13:43)
[2024-11-13] MEDS ORDERED: PROCHLORPERAZINE 10 MG PO PRN (13:43)
[2024-11-13] MEDS ORDERED: Mirtazapine 15 MG Tab PO PRN (13:46)
[2024-11-13] MEDS ORDERED: BIOFREEZE TOP PRN (13:48)
[2024-11-13] MEDS ORDERED: Ondansetron 4 MG Tab.DIS PRN (13:48)
[2024-11-13] MEDS ORDERED: Haloperidol Lactate 2 MG/ML Oral Soln 15 ML Bottle PO PRN ×2 (13:48→14:05)
[2024-11-13] MEDS ORDERED: Albuterol 6.7 GM Inhaler INH PRN (13:51)
[2024-11-13] MEDS ORDERED: Prochlorperazine 5 MG Tab PO PRN (13:57)
[2024-11-13] MEDS: LORazepam 2 MG/ML SDV IVPUSH SCH (14:14)
[2024-11-13] MEDS: Morphine 10 MG/ML SDV IVPUSH PRN (14:17)
[2024-11-13] MEDS: Methadone 10 MG Tab PO SCH (17:11)
[2024-11-13] MEDS: LORazepam 2 MG/ML SDV IVPUSH PRN ×2 (17:22→20:56)
[2024-11-13] MEDS: Acetaminophen 650 MG Tab.ER PO SCH (18:30)
[2024-11-13] MEDS: Sodium Chloride 0.9% 10 ML Syringe FLUSH PRN (19:10)
[2024-11-13] MEDS ORDERED: HYDROmorphone 2 MG/ML SDV IVPUSH PRN (19:35)
[2024-11-13] MEDS: HYDROmorphone 2 MG/ML SDV IVPUSH PRN (20:03)
[2024-11-13] MEDS: diphenhydrAMINE 25 MG Cap PO SCH (22:10)
[2024-11-13] MEDS: Pregabalin 100 MG Cap PO SCH (22:11)
[2024-11-13] MEDS: Mirtazapine 15 MG Tab PO SCH (22:11)
[2024-11-13] MEDS: Albuterol/Ipratropium 3.0-0.5 MG/3 ML Neb Soln INH SCH (22:11)
[2024-11-13] MEDS: Sennosides/Docusate Sodium 50-8.6 MG Tab PO SCH (22:11)
[2024-11-13] MEDS: Melatonin 3 MG Tab PO SCH (22:11)
[2024-11-13] MEDS: Acetaminophen 500 MG Tab PO SCH (22:12)
[2024-11-14] MEDS: Morphine 10 MG/ML SDV IVPUSH SCH (03:52)
[2024-11-14] MEDS: LORazepam 2 MG/ML SDV IVPUSH SCH (03:52)
[2024-11-14] MEDS: HYDROmorphone 2 MG/ML SDV IVPUSH PRN (05:15)
[2024-11-14] MEDS: Dexamethasone 4 MG Tab PO SCH (10:29)
[2024-11-14] MEDS: Polyethylene Glycol 3350 Powder 17 GM Packet PO SCH (10:31)
[2024-11-14] MEDS: Finasteride 5 MG Tab PO SCH (10:31)
[2024-11-14] MEDS: Famotidine 20 MG Tab PO SCH (10:31)
[2024-11-14] MEDS: HYDROmorphone 2 MG/ML SDV IVPUSH SCH (11:58)
[2024-11-14] MEDS: Haloperidol Lactate 2 MG/ML Oral Soln 15 ML Bottle PO PRN ×2 (11:59→15:12)
[2024-11-15] MEDS: Hyoscyamine 0.125 MG Tab.SL SL PRN (09:45)
[2024-11-15] MEDS: Glycopyrrolate 0.2 MG/ML 5 ML MDV IVPUSH PRN (14:28)
[2025-11-13] MEDS ORDERED: Morphine 10 MG/ML SDV IVPUSH ONE (12:18)
== END 2024-11-16 03:20 | disposition expired | DRG 951 ==
LOC: FB.MS 10:05
PROVIDERS: ADMIT Internal Medicine; ATTEND Internal Medicine
DX: Z51.5 Encounter for palliative care (principal); C78.00 Secondary malignant neoplasm of unspecified lung; Z75.5 Holiday relief care; Z66 Do not resuscitate; H54.7 Unspecified visual loss; E78.00 Pure hypercholesterolemia, unspecified; I10 Essential (primary) hypertension; I48.91 Unspecified atrial fibrillation; G47.30 Sleep apnea, unspecified; K21.9 Gastro-esophageal reflux disease without esophagitis; M19.90 Unspecified osteoarthritis, unspecified site; F41.9 Anxiety disorder, unspecified; F32.A Depression, unspecified; E66.9 Obesity, unspecified; C80.1 Malignant (primary) neoplasm, unspecified; Z88.8 Allergy status to other drugs, medicaments and biological substances; I25.2 Old myocardial infarction; Z95.0 Presence of cardiac pacemaker; Z95.5 Presence of coronary angioplasty implant and graft; Z87.19 Personal history of other diseases of the digestive system; Z87.81 Personal history of (healed) traumatic fracture; Z86.73 Personal history of transient ischemic attack (TIA), and cerebral infarction without residual deficits; Z98.890 Other specified postprocedural states; Z90.89 Acquired absence of other organs; Z87.891 Personal history of nicotine dependence
CPT/HCPCS: A9270-GY; J1171; J1596; J2060; J2272